=== PATIENT | male | born 1965 | race Caucasian/White ===

== ENCOUNTER 2017-08-03 11:53 | Inpatient (IN) | payer OTHER ==
[2017-08-03 12:39] LABS: Urine Drugs of Abuse Note Disclamer
[2017-08-03 12:55] LABS: Bacteria,Urine 1+ /HPF (Negative); Bilirubin,Urine SM (Negative); Blood,Urine LG (Negative); Ketones,Urine TR mg/dL (Negative); Leukocyte Esterase,Urine NEG (Negative); Mucus,Urine 3+ /HPF; Nitrite,Urine NEG (Negative)
[2017-08-03 12:56] LABS: RBC,Urine > 182.0 /HPF (0.0-6.0)
[2017-08-03] MEDS ORDERED: ATIVAN ONE (14:37)
[2017-08-03 15:09] LABS: Basophils % (Auto) 0.3 % (0.0-1.8); Eosinophils % (Auto) 0.1 % (0.0-4.3); Hematocrit 34.7 % (35.5-45.6); Hemoglobin 11.5 gm/dl (11.8-15.2); Mean Corpuscular HGB Conc 33 % (32-34); Mean Corpuscular Hemoglobin 36 pg (28-32); Mean Corpuscular Volume 108 fl (84-94)
[2017-08-03 15:18] LABS: Platelet Count 49 K/mm3 (140-440)
[2017-08-03 15:23] LABS: INR 1.03 (0.87-1.13)
[2017-08-03 15:24] LABS: Partial Thromboplastin Time 28.2 Sec. (24.2-36.6)
[2017-08-03 15:29] LABS: Anion Gap 33 mmol/L; BUN/Creatinine Ratio 12; Blood Urea Nitrogen 7 mg/dL (9-20); Calcium 7.7 mg/dL (8.4-10.2); Carbon Dioxide 16 mmol/L (22-30); Chloride 97.7 mmol/L (98-107); Glucose 122 mg/dL (75-100); Potassium 3.6 mmol/L (3.6-5.0); Sodium 143 mmol/L (137-145)
[2017-08-03 15:31] LABS: Albumin 3.2 g/dL (3.9-5); Albumin/Globulin Ratio 0.8 %; Bilirubin,Direct 1.3 mg/dL (0-0.2); Bilirubin,Indirect 1.3 mg/dL; Bilirubin,Total 2.6 mg/dL (0.1-1.2)
--- NOTE | 2017-08-03 15:33 | Cat Scan Report ---
FINAL REPORT EXAM: CT HEAD/BRAIN WO CON HISTORY: fall TECHNIQUE: CT of the Head without IV contrast. PRIORS: None currently available. FINDINGS: There is no evidence for acute ischemia. There is no hemorrhage. There is no midline shift. There is no hydrocephalus. There is no mass. Age appropriate araya-white matter attenuation is noted. There is no calvarial fracture. The temporal bones demonstrate aerated mastoid air cells. The middle ears appear unremarkable. Mild mucosal thickening in both anterior ethmoid sinuses. Globes are intact. IMPRESSION: No acute intracranial findings.
--- NOTE | 2017-08-03 15:35 | Cat Scan Report ---
FINAL REPORT EXAM: CT CERVICAL SPINE WO CON HISTORY: fall TECHNIQUE: CT of the Cervical Spine without IV contrast. Coronal and sagittal reformatted images were provided. PRIORS: None currently available. FINDINGS: There is no fracture. There is no subluxation. There is no atlantooccipital dislocation. Occipitiocervical joint is intact. C1-C2: Intact. Minimal to mild degenerative discs at C3-C7. No significant canal narrowing. Some neural foraminal narrowing. Prevertebral soft tissue structures are unremarkable. IMPRESSION: No acute fracture.
--- NOTE | 2017-08-03 16:32 | Emergency Department Report ---
HPI - General Chief Complaint: Alcohol Time Seen by Provider: 08/03/17 15:51 - HPI HPI: Room 8 The patient is a 52-year-old male presenting with a chief complaint of syncope. The patient states he was sitting in the laundry mat and then had a syncopal episode. The patient states he awakened at EMS around him. Patient had small bottles of alcohol found on him. The patient only complains of head pain. Patient denies any other complaints. Patient denies nausea or vomiting Location: Head Duration: [See above] Quality: Pain Severity: Moderate Modifying factors: [see above] Context: [see above] Mode of transportation: [not driving] ED Past Medical Hx - Past Medical History Previous Medical History?: No - Surgical History Past Surgical History?: No - Family History Family history: no significant - Social History Smoking Status: Never Smoker Substance Use Type: Alcohol ED Review of Systems ROS: Stated complaint: ETOH, ALTERED Other details as noted in HPI Eyes: denies: eye pain ENT: denies: ear pain Respiratory: denies: shortness of breath Cardiovascular: denies: chest pain Gastrointestinal: denies: nausea, vomiting Genitourinary: denies: dysuria Musculoskeletal: denies: back pain Neurological: headache Physical Exam - Physical Exam Vital Signs: Vital Signs 08/03/17 08/03/17 15:05 15:27 Temperature 100.2 F H Pulse Rate 108 H 94 H Respiratory 22 Rate Blood Pressure 140/79 140/79 [Right] O2 Sat by Pulse 94 Oximetry Physical Exam: GENERAL: The patient is well-developed well-nourished male lying on stretcher not appearing to be in acute distress. [] HEENT: Normocephalic. Atraumatic. Extraocular motions are intact. Patient has moist mucous membranes. NECK: Supple. No meningitic signs are noted. Trachea midline CHEST/LUNGS: Clear to auscultation. There is no respiratory distress noted. HEART/CARDIOVASCULAR: Regular. There is no tachycardia. There is no gallop rub or murmur. ABDOMEN: Abdomen is soft, nontender. Patient has normal bowel sounds. There is no abdominal distention. SKIN: There is no rash. There is no edema. There is no diaphoresis. NEURO: The patient is awake, alert, and oriented. The patient is cooperative. The patient has no focal neurologic deficits. The patient has normal speech. Cranial nerves II through XII grossly intact, no drift MUSCULOSKELETAL: There is no evidence of acute injury. ED Course Vital Signs 08/03/17 08/03/17 15:05 15:27 Temperature 100.2 F H Pulse Rate 108 H 94 H Respiratory 22 Rate Blood Pressure 140/79 140/79 [Right] O2 Sat by Pulse 94 Oximetry ED Medical Decision Making - Lab Data Result diagrams: 08/03/17 14:57 08/03/17 14:57 Laboratory Tests 08/03/17 08/03/17 08/03/17 12:28 12:28 14:57 WBC RBC Hgb Hct MCV MCH MCHC RDW Plt Count Lymph % (Auto) [place] % (Auto) Eos % (Auto) Baso % (Auto) Lymph # Parker # Eos # Baso # Seg Neutrophils % Seg Neutrophils # PT INR APTT Sodium 143 Potassium 3.6 Chloride 97.7 L Carbon Dioxide 16 L Anion Gap 33 BUN 7 L Creatinine 0.6 L Estimated GFR > 60 BUN/Creatinine Ratio 12 Glucose 122 H Calcium 7.7 L Total Bilirubin Direct Bilirubin Indirect Bilirubin AST ALT Alkaline Phosphatase Total Creatine Kinase Total Protein Albumin Albumin/Globulin Ratio Urine Color Ellyn Urine Turbidity Clear Urine pH 5.0 Ur Specific [place] 1.034 H Urine Protein 100 mg/dl Urine Glucose (UA) 50 Urine Ketones Tr Urine Blood Lg Urine Nitrite Neg Urine Bilirubin Sm Urine Ictotest Positive Urine Urobilinogen 4.0 Ur Leukocyte Esterase Neg Urine WBC (Auto) 19.0 H Urine RBC (Auto) > 182.0 U Epithel Cells (Auto) < 1.0 Urine Bacteria (Auto) 1+ Urine Mucus 3+ Urine Opiates Screen Presumptive negative Urine Methadone Screen Presumptive negative Ur Barbiturates Screen Presumptive negative Ur Phencyclidine Scrn Presumptive negative Ur Amphetamines Screen Presumptive negative U Benzodiazepines Scrn Presumptive negative Urine Cocaine Screen Presumptive negative U Marijuana (THC) Screen Presumptive negative Drugs of Abuse Note Disclamer Plasma/Serum Alcohol 08/03/17 08/03/17 08/03/17 14:57 14:57 14:57 WBC 7.0 RBC 3.20 L Hgb 11.5 L Hct 34.7 L MCV 108 H MCH 36 H MCHC 33 RDW 14.0 Plt Count 49 L Lymph % (Auto) 10.3 L Parker % (Auto) 8.0 H Eos % (Auto) 0.1 Baso % (Auto) 0.3 Lymph # 0.7 L Parker # 0.6 Eos # 0.0 Baso # 0.0 Seg Neutrophils % 81.3 H Seg Neutrophils # 5.7 PT INR APTT Sodium Potassium Chloride Carbon Dioxide Anion Gap BUN Creatinine Estimated GFR BUN/Creatinine Ratio Glucose Calcium Total Bilirubin 2.60 H Direct Bilirubin 1.3 H Indirect Bilirubin 1.3 AST 181 H ALT 63 H Alkaline Phosphatase 200 H Total Creatine Kinase Total Protein 7.0 Albumin 3.2 L Albumin/Globulin Ratio 0.8 Urine Color Urine Turbidity Urine pH Ur Specific [place] Urine Protein Urine Glucose (UA) Urine Ketones Urine Blood Urine Nitrite Urine Bilirubin Urine Ictotest Urine Urobilinogen Ur Leukocyte Esterase Urine WBC (Auto) Urine RBC (Auto) U Epithel Cells (Auto) Urine Bacteria (Auto) Urine Mucus Urine Opiates Screen Urine Methadone Screen Ur Barbiturates Screen Ur Phencyclidine Scrn Ur Amphetamines Screen U Benzodiazepines Scrn Urine Cocaine Screen U Marijuana (THC) Screen Drugs of Abuse Note Plasma/Serum Alcohol 0.09 H 08/03/17 08/03/17 14:57 16:30 WBC RBC Hgb Hct MCV MCH MCHC RDW Plt Count Lymph % (Auto) [place] % (Auto) Eos % (Auto) Baso % (Auto) Lymph # Parker # Eos # Baso # Seg Neutrophils % Seg Neutrophils # PT 14.0 INR 1.03 APTT 28.2 Sodium Potassium Chloride Carbon Dioxide Anion Gap BUN Creatinine Estimated GFR BUN/Creatinine Ratio Glucose Calcium Total Bilirubin Direct Bilirubin Indirect Bilirubin AST ALT Alkaline Phosphatase Total Creatine Kinase 460 H Total Protein Albumin Albumin/Globulin Ratio Urine Color Urine Turbidity Urine pH Ur Specific [place] Urine Protein Urine Glucose (UA) Urine Ketones Urine Blood Urine Nitrite Urine Bilirubin Urine Ictotest Urine Urobilinogen Ur Leukocyte Esterase Urine WBC (Auto) Urine RBC (Auto) U Epithel Cells (Auto) Urine Bacteria (Auto) Urine Mucus Urine Opiates Screen Urine Methadone Screen Ur Barbiturates Screen Ur Phencyclidine Scrn Ur Amphetamines Screen U Benzodiazepines Scrn Urine Cocaine Screen U Marijuana (THC) Screen Drugs of Abuse Note Plasma/Serum Alcohol - EKG Data -: EKG Interpreted by [place] EKG shows normal: sinus rhythm Rate: normal - EKG Data When compared to previous EKG there are: previous EKG unavailable Interpretation: other (no ischemic changes seen) - Radiology Data Radiology results: report reviewed (CT head, CT cervical spine), image reviewed (CT head CT cervical spine) FINAL REPORT EXAM: CT HEAD/BRAIN WO CON HISTORY: fall TECHNIQUE: CT of the Head without IV contrast. PRIORS: None currently available. FINDINGS: There is no evidence for acute ischemia. There is no hemorrhage. There is no midline shift. There is no hydrocephalus. There is no mass. Age appropriate araya-white matter attenuation is noted. There is no calvarial fracture. The temporal bones demonstrate aerated mastoid air cells. The middle ears appear unremarkable. Mild mucosal thickening in both anterior ethmoid sinuses. Globes are intact. IMPRESSION: No acute intracranial findings. Transcribed By: TYM Dictated By: NEGRO OLIVO MD Electronically Authenticated By: NEGRO OLIVO MD Signed Date/Time: 08/03/171129 DD/ 29 TD/TT: 08/03/171129 FINAL REPORT EXAM: CT CERVICAL SPINE WO CON HISTORY: fall TECHNIQUE: CT of the Cervical Spine without IV contrast. Coronal and sagittal reformatted images were provided. PRIORS: None currently available. FINDINGS: There is no fracture. There is no subluxation. There is no atlantooccipital dislocation. Occipitiocervical joint is intact. C1-C2: Intact. Minimal to mild degenerative discs at C3-C7. No significant canal narrowing. Some neural foraminal narrowing. Prevertebral soft tissue structures are unremarkable. IMPRESSION: No acute fracture. Transcribed By: TYM Dictated By: NEGRO OLIVO MD Electronically Authenticated By: NEGRO OLIVO MD Signed Date/Time: 08/03/171131 DD/ 31 TD/TT: 08/03/171131 - Differential Diagnosis syncope, dysrhythmia, alcoholism, Critical care attestation.: If time is entered above; I have spent that time in minutes in the direct care of this critically ill patient, excluding procedure time. ED Disposition Clinical Impression: Closed head injury, Syncope, Elevated LFTs, Alcohol abuse Disposition: OP ADMIT IP TO THIS HOSP Is pt being admited?: Yes Does the pt Need Aspirin: Yes Condition: Fair Instructions: Syncope (ED) Referrals: PRIMARY CARE, [Primary Care Provider] - 3-5 Days Time of Disposition: 18:01 (hospitalist paged (Dr King))
[2017-08-03] MEDS ORDERED: VITAMIN B-1 100 MG, FOLVITE 1 MG, INFUVITE 10 ML, MAGNESIUM SULFATE 2 GM in NACL 0.9% 1... IV ONE (17:00)
[2017-08-03] MEDS ORDERED: ASPIRIN PO ONE (18:02)
[2017-08-03] MEDS ORDERED: ULTRAM PO ONE (18:02)
--- NOTE | 2017-08-03 20:41 | History and Physical Report ---
History of Present Illness Date of examination: 08/03/17 Date of admission: 08/03/17 Chief complaint: CC:Passed out at [facility] couple of hrs ago. 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 No Chest painPalpitations or diaphoresis. No N/V No recent travel Past History Past Medical History: No medical history Past Surgical History: No surgical history Social history: lives with family, alcohol abuse (Drinks 1 bottle of Vodka 750 mlor Tequila), full code Family history: no significant family history Medications and Allergies Allergies Allergy/AdvReac Type Severity Reaction Status Date / Time No Known Allergies Allergy Unverified 08/03/17 12:16 Active Meds: Active Medications Thiamine HCl 100 mg/ Folic Acid 1 mg/ Multivitamins/Minerals 10 ml/ Magnesium Sulfate 2 gm/ Sodium Chloride 1,015.2 mls @ 250 mls/hr IV ONCE.ED ONE Stop: 08/03/17 21:03 Last Admin: 08/03/17 17:14 Dose: 250 mls/hr Review of Systems All systems: negative Constitutional: no weight loss, no weight gain, no fever, no chills Ears, nose, mouth and throat: no dysphagia, no hoarseness, no sore throat, no swelling in mouth Respiratory: no cough, no cough with sputum, no excessive sputum, no hemoptysis , no shortness of breath, no dyspnea on exertion Gastrointestinal: no abdominal pain, no nausea, no vomiting, no diarrhea, no constipation, no change in bowel habits, no hematemesis, no coffee ground emesis Genitourinary Male: no dysuria, no hematuria, no flank pain, no discharge, no urinary frequency, no urinary hesitancy Rectal: no pain Musculoskeletal: no neck stiffness, no neck pain, no shooting arm pain, no arm numbness/tingling Integumentary: no rash, no pruritis, no redness, no sores Neurological: syncope, no head injury, no transient paralysis, no paralysis, no seizures Psychiatric: no anxiety, no memory loss, no change in sleep habits, no sleep disturbances, no insomnia, no change in appetite, no change in libido Endocrine: no cold intolerance, no heat intolerance, no polyphagia, no excessive thirst, no polydipsia Hematologic/Lymphatic: no easy bruising, no easy bleeding Allergic/Immunologic: no urticaria, no allergic rhinitis, no wheezing Exam - Constitutional Vitals: Temp Pulse Resp BP Pulse Ox 97.8 F 91 H 19 135/80 98 08/03/17 20:00 08/03/17 20:00 08/03/17 20:00 08/03/17 20:00 08/03/17 20:00 General appearance: Present: no acute distress, well-nourished - EENT Eyes: Present: PERRL ENT: hearing intact, clear oral mucosa - Neck Neck: Present: supple, normal ROM - Respiratory Respiratory effort: normal Respiratory: bilateral: CTA - Cardiovascular Heart rate: 70 Rhythm: regular Heart Sounds: Present: S1 & S2. Absent: rub, click - Extremities Extremities: no ischemia, pulses intact, pulses symmetrical, No edema Peripheral Pulses: within normal limits - Abdominal General gastrointestinal: Present: soft, non-tender, non-distended, normal bowel sounds Male genitourinary: Present: normal - Rectal Rectal Exam: deferred - Integumentary Integumentary: Present: clear, warm, dry - Musculoskeletal Musculoskeletal: gait normal, strength equal bilaterally - Psychiatric Psychiatric: appropriate mood/affect, intact judgment & insight - Neurologic Neurologic: CNII-XII intact, moves all extremities - Allied Health Allied health notes reviewed: nursing, case management Results - Labs CBC & Chem 7: 08/03/17 14:57 08/03/17 14:57 Labs: Laboratory Last Values WBC 7.0 K/mm3 (4.5-11.0) 08/03/17 14:57 RBC 3.20 M/mm3 (3.65-5.03) L 08/03/17 14:57 Hgb 11.5 gm/dl (11.8-15.2) L 08/03/17 14:57 Hct 34.7 % (35.5-45.6) L 08/03/17 14:57 MCV 108 fl (84-94) H 08/03/17 14:57 MCH 36 pg (28-32) H 08/03/17 14:57 MCHC 33 % (32-34) 08/03/17 14:57 RDW 14.0 % (13.2-15.2) 08/03/17 14:57 Plt Count 49 K/mm3 (140-440) L 08/03/17 14:57 Lymph % (Auto) 10.3 % (13.4-35.0) L 08/03/17 14:57 [place] % (Auto) 8.0 % (0.0-7.3) H 08/03/17 14:57 Eos % (Auto) 0.1 % (0.0-4.3) 08/03/17 14:57 Baso % (Auto) 0.3 % (0.0-1.8) 08/03/17 14:57 Lymph # 0.7 K/mm3 (1.2-5.4) L 08/03/17 14:57 [place] # 0.6 K/mm3 (0.0-0.8) 08/03/17 14:57 Eos # 0.0 K/mm3 (0.0-0.4) 08/03/17 14:57 Baso # 0.0 K/mm3 (0.0-0.1) 08/03/17 14:57 Seg Neutrophils % 81.3 % (40.0-70.0) H 08/03/17 14:57 Seg Neutrophils # 5.7 K/mm3 (1.8-7.7) 08/03/17 14:57 PT 14.0 Sec. (12.2-14.9) 08/03/17 14:57 INR 1.03 (0.87-1.13) 08/03/17 14:57 APTT 28.2 Sec. (24.2-36.6) 08/03/17 14:57 Sodium 143 mmol/L (137-145) 08/03/17 14:57 Potassium 3.6 mmol/L (3.6-5.0) 08/03/17 14:57 Chloride 97.7 mmol/L (98-107) L 08/03/17 14:57 Carbon Dioxide 16 mmol/L (22-30) L 08/03/17 14:57 Anion Gap 33 mmol/L 08/03/17 14:57 BUN 7 mg/dL (9-20) L 08/03/17 14:57 Creatinine 0.6 mg/dL (0.8-1.5) L 08/03/17 14:57 Estimated GFR > 60 ml/min 08/03/17 14:57 BUN/Creatinine Ratio 12 % 08/03/17 14:57 Glucose 122 mg/dL (75-100) H 08/03/17 14:57 Calcium 7.7 mg/dL (8.4-10.2) L 08/03/17 14:57 Total Bilirubin 2.60 mg/dL (0.1-1.2) H 08/03/17 14:57 Direct Bilirubin 1.3 mg/dL (0-0.2) H 08/03/17 14:57 Indirect Bilirubin 1.3 mg/dL 08/03/17 14:57 AST 181 units/L (5-40) H 08/03/17 14:57 ALT 63 units/L (7-56) H 08/03/17 14:57 Alkaline Phosphatase 200 units/L (35-129) H 08/03/17 14:57 Total Creatine Kinase 460 units/L (55-170) H 08/03/17 16:30 Total Protein 7.0 g/dL (6.3-8.2) 08/03/17 14:57 Albumin 3.2 g/dL (3.9-5) L 08/03/17 14:57 Albumin/Globulin Ratio 0.8 % 08/03/17 14:57 Urine Color Ellyn (Yellow) 08/03/17 12:28 Urine Turbidity Clear (Clear) 08/03/17 12:28 Urine pH 5.0 (5.0-7.0) 08/03/17 12:28 Ur Specific [place] 1.034 (1.003-1.030) H 08/03/17 12:28 Urine Protein 100 mg/dl mg/dL (Negative) 08/03/17 12:28 Urine Glucose (UA) 50 mg/dL (Negative) 08/03/17 12:28 Urine Ketones Tr mg/dL (Negative) 08/03/17 12:28 Urine Blood Lg (Negative) 08/03/17 12:28 Urine Nitrite Neg (Negative) 08/03/17 12:28 Urine Bilirubin Sm (Negative) 08/03/17 12:28 Urine Ictotest Positive (Negative) 08/03/17 12:28 Urine Urobilinogen 4.0 mg/dL (<2.0) 08/03/17 12:28 Ur Leukocyte Esterase Neg (Negative) 08/03/17 12:28 Urine WBC (Auto) 19.0 /HPF (0.0-6.0) H 08/03/17 12:28 Urine RBC (Auto) > 182.0 /HPF (0.0-6.0) 08/03/17 12:28 U Epithel Cells (Auto) < 1.0 /HPF (0-13.0) 08/03/17 12:28 Urine Bacteria (Auto) 1+ /HPF (Negative) 08/03/17 12:28 Urine Mucus 3+ /HPF 08/03/17 12:28 Urine Opiates Screen Presumptive negative 08/03/17 12:28 Urine Methadone Screen Presumptive negative 08/03/17 12:28 Ur Barbiturates Screen Presumptive negative 08/03/17 12:28 Ur Phencyclidine Scrn Presumptive negative 08/03/17 12:28 Ur Amphetamines Screen Presumptive negative 08/03/17 12:28 U Benzodiazepines Scrn Presumptive negative 08/03/17 12:28 Urine Cocaine Screen Presumptive negative 08/03/17 12:28 U Marijuana (THC) Screen Presumptive negative 08/03/17 12:28 Drugs of Abuse Note Disclamer 08/03/17 12:28 Plasma/Serum Alcohol 0.09 gm% (0-0.07) H 08/03/17 14:57 - Imaging and Cardiology EKG: report reviewed (Sinus Tach [id number]/min) CT Scan - head: report reviewed (NAF) Assessment and Plan Advance Directives: Yes (Full code) VTE prophylaxis?: Chemical Plan of care discussed with patient/family: Yes - Patient Problems (1) Syncope Current Visit: Yes Status: Acute Qualifiers: Syncope type: unspecified Qualified Code(s): R55 - Syncope and collapse Plan to address problem: Syncope w/u CDS and Lexiscan Cardiac enzumes ETOH induced. (2) Transaminitis Current Visit: Yes Status: Acute Plan to address problem: Sec to ETOH Check Hepatitis profile (3) Alcohol abuse Current Visit: Yes Status: Chronic Plan to address problem: Needs Detox and willing to get help [place] protocol initiated to prevent DT's (4) Closed head injury Current Visit: Yes Status: Acute Qualifiers: Encounter type: initial encounter Qualified Code(s): S09.90XA - Unspecified injury of head, initial encounter Plan to address problem: Small Lac to Lip.Head CT normal (5) DVT prophylaxis Current Visit: Yes Status: Acute Plan to address problem: on lovenox
[2017-08-03] MEDS ORDERED: TYLENOL PO PRN (20:50)
[2017-08-03] MEDS ORDERED: AMBIEN PO PRN (20:50)
[2017-08-03] MEDS ORDERED: MILK OF MAGNESIA PO PRN (20:50)
[2017-08-03] MEDS ORDERED: DULCOLAX PR PRN (20:50)
[2017-08-03] MEDS ORDERED: ATIVAN IV PRN (21:01)
[2017-08-03] MEDS ORDERED: HALDOL IV PRN (21:01)
[2017-08-03] MEDS: ATIVAN IV PRN ×2 (21:42→23:00)
[2017-08-03 22:04] LABS: Albumin 3.3 g/dL (3.9-5); Albumin/Globulin Ratio 0.8 %; Bilirubin,Direct 1.7 mg/dL (0-0.2); Bilirubin,Indirect 1.6 mg/dL; Bilirubin,Total 3.3 mg/dL (0.1-1.2); Magnesium 1.9 mg/dL (1.7-2.3); Total Protein 7.4 g/dL (6.3-8.2)
[2017-08-03] MEDS: PEPCID IV SCH (22:10)
[2017-08-03] MEDS: ZOFRAN IV PRN (22:15)
[2017-08-03] MEDS: D5NS 1,000 ML IV SCH (22:19)
[2017-08-04] MEDS: ATIVAN IV PRN ×4 (01:28→11:44)
[2017-08-04] MEDS: HALDOL IV PRN ×3 (03:30→20:56)
[2017-08-04 06:44] LABS: Alanine Aminotransferase 50 units/L (7-56); Albumin 2.9 g/dL (3.9-5); Albumin/Globulin Ratio 0.8 %; Alkaline Phosphatase 158 units/L (35-129); BUN/Creatinine Ratio 18; Blood Urea Nitrogen 7 mg/dL (9-20); Calcium 7.2 mg/dL (8.4-10.2); Carbon Dioxide 24 mmol/L (22-30); Chloride 102.7 mmol/L (98-107); Glucose 91 mg/dL (75-100); Potassium 3.3 mmol/L (3.6-5.0); Sodium 141 mmol/L (137-145); Total Protein 6.6 g/dL (6.3-8.2)
[2017-08-04 06:46] LABS: Anion Gap 18 mmol/L
[2017-08-04 07:09] LABS: Basophils % (Auto) 0.5 % (0.0-1.8); Eosinophils % (Auto) 1.1 % (0.0-4.3); Hemoglobin 10.5 gm/dl (11.8-15.2); Mean Corpuscular HGB Conc 34 % (32-34); Mean Corpuscular Hemoglobin 37 pg (28-32); Mean Corpuscular Volume 108 fl (84-94); Red Blood Count 2.88 M/mm3 (3.65-5.03); Red Cell Distribution Width 13.3 % (13.2-15.2); White Blood Count 5.1 K/mm3 (4.5-11.0)
[2017-08-04 07:10] LABS: Platelet Count 34 K/mm3 (140-440)
[2017-08-04 07:35] LABS: Creatine Kinase MB 3.5 ng/mL (0.0-4.0)
[2017-08-04 07:36] LABS: Creatine Kinase 471 units/L (55-170)
[2017-08-04] MEDS: ZOFRAN IV PRN (08:26)
[2017-08-04] MEDS: LIBRIUM PO PRN ×3 (08:26→18:53)
[2017-08-04] MEDS: MORPHINE IV PRN (08:27)
[2017-08-04] MEDS ORDERED: ROCEPHIN/NS 2 GM/100 ML 2 GM/100 ML BAG IV SCH (10:00)
[2017-08-04] MEDS ORDERED: NACL 0.9% 500 ML IR ONE (10:05)
[2017-08-04] MEDS ORDERED: XYLOCAINE 1% 20 mL ONE (10:20)
[2017-08-04] MEDS: cefTRIAXone 2 GM in NACL 0.9% 20 ML IV SCH (11:43)
[2017-08-04] MEDS: PEPCID IV SCH ×2 (11:51→21:04)
--- NOTE | 2017-08-04 12:28 | Cat Scan Report ---
CT HEAD WITHOUT CONTRAST: HISTORY: Injury, pain. TECHNIQUE: Sequential 2.5mm CT images. COMPARISON: none. FINDINGS: Cerebral Parenchyma: Within normal limits. Cerebellum: Within normal limits. Brainstem: Within normal limits. Ventricles: Normal. Sella: Normal. Extra-axial spaces: Normal. Basal Cisterns: Normal. Intracranial Hemorrhage: None. Midline Shift: None. Calvarium: Normal. Sinuses: Normal. Mastoid Air Cells: Normal. Visualized Orbits: Normal. IMPRESSION: Cranial CT scan within normal limits.
--- NOTE | 2017-08-04 12:33 | Cat Scan Report ---
CT SCAN OF THE CERVICAL SPINE: HISTORY: Injury, neck pain. TECHNIQUE: Contiguous 1.25 mm axial images of the cervical spine were obtained. Sagittal and coronal reformatted images. FINDINGS: There is normal alignment of the cervical spine. The body, pedicles and posterior ligaments appear normal. No evidence of fracture or subluxation is seen. Mild degenerative disc disease is noted at C6-7. The spinal canal appears normal. The prevertebral soft tissues appear normal. IMPRESSION: Mild cervical spondylosis. No acute process is noted.
--- NOTE | 2017-08-04 12:34 | Cat Scan Report ---
CT FACIAL BONES WITHOUT CONTRAST: HISTORY: Pain, injury, swelling. TECHNIQUE: Helical CT images with sagittal and coronal CT reformations. FINDINGS: There is moderate left periorbital soft tissue swelling. All paranasal sinuses are clear. No sinus wall fracture, fluid level or opacification. The orbital cavities are symmetric and intact. The mandible is intact. The skull base and upper cervical spine demonstrate no evidence for acute injury. IMPRESSION: Left periorbital soft tissue swelling. No acute facial fracture is detected.
[2017-08-04] MEDS: LOVENOX SUB-Q SCH (12:56)
[2017-08-04 14:41] LABS: Creatine Kinase MB 2.8 ng/mL (0.0-4.0)
[2017-08-04 14:42] LABS: Creatine Kinase 447 units/L (55-170)
--- NOTE | 2017-08-04 16:15 | Consultation ---
History of Present Illness - Reason for Consult Consult date: 08/04/17 Reason for consult: psychiatric evaluation - Chief Complaint Chief complaint: Syncope - History of Present Psychiatric Illness Attempt to interview the patient with interpretation by his nurse. The patient is a 52-year-old male presenting with a chief complaint of syncope. His language is Yi.The record indicates he was sitting in the laundry mat and then had a syncopal episode. The patient stated he awakened at EMS around him. Patient had small bottles of alcohol found on him. He told the nurse he drinks 750mL of tequila daily. He has to be redirected often and is being closely monitored on a stretcher in the ngo by the nurse. He urinated in the floor and required assistance in getting clean. Additional information is not available. He is drowsy and confused. He was unable to engage in interview. Medications and Allergies Allergies Allergy/AdvReac Type Severity Reaction Status Date / Time No Known Allergies Allergy Unverified 08/03/17 12:16 Active Meds: Active Medications Acetaminophen (Tylenol) 650 mg PO Q4H PRN PRN Reason: Pain MILD(1-3)/Fever >100.5/THOMPSON Bisacodyl (Dulcolax) 10 mg RI QDAY PRN PRN Reason: Constipation unrelieved by MOM Chlordiazepoxide HCl (Librium) 50 mg PO Q1H PRN PRN Reason: CIWA-Ar 8-15 Last Admin: 08/04/17 08:26 Dose: 50 mg Chlordiazepoxide HCl (Librium) 100 mg PO Q1H PRN PRN Reason: CIWA-Ar 16-25 Enoxaparin Sodium (Lovenox) 40 mg SUB-Q QDAY [facility] Last Admin: 08/04/17 12:56 Dose: 40 mg Famotidine (Pepcid) 20 mg IV BID [facility] Last Admin: 08/04/17 11:51 Dose: 20 mg Haloperidol Lactate (Haldol) 5 mg IV Q1H PRN PRN Reason: Unrespon. to mult. doses BZD's Last Admin: 08/04/17 06:00 Dose: 5 mg Haloperidol Lactate (Haldol) 10 mg IV Q1H PRN PRN Reason: CIWA-Ar >15 and unrespon BZD's Dextrose/Sodium Chloride (D5ns) 1,000 mls @ 125 mls/hr IV DIRECT [facility] Last Admin: 08/03/17 22:19 Dose: 125 mls/hr Ceftriaxone Sodium 2 gm/ (Sodium Chloride) 20 mls @ 20 mls/10 min IV Q24HR [facility] Last Admin: 08/04/17 11:43 Dose: 20 mls/10 min Lorazepam (Ativan) 2 mg IV Q1H PRN PRN Reason: CIWA-Ar 8-15 Last Admin: 08/04/17 11:44 Dose: 2 mg Lorazepam (Ativan) 4 mg IV Q1H PRN PRN Reason: CIWA-Ar 16-25 Last Admin: 08/04/17 01:28 Dose: 4 mg Lorazepam (Ativan) 4 mg IV Q15MIN PRN PRN Reason: CIWA-Ar >25 Last Admin: 08/04/17 13:51 Dose: 4 mg Magnesium Hydroxide (Milk Of Magnesia) 30 ml PO Q4H PRN PRN Reason: Constipation Morphine Sulfate (Morphine) 2 mg IV Q4H PRN PRN Reason: Pain, Moderate (4-6) Last Admin: 08/04/17 08:27 Dose: 2 mg Ondansetron HCl (Zofran) 4 mg IV Q8H PRN PRN Reason: N/V unrelieved by Reglan Last Admin: 08/04/17 08:26 Dose: 4 mg Phenobarbital (Phenobarbital) 130 mg IV Q15M PRN PRN Reason: DT's refractory to BZD's Zolpidem Tartrate (Ambien) 5 mg PO QHS PRN PRN Reason: Insomnia Past psychiatric history - Past Medical History Past Medical History: other (none known) - past Psychiatric treatment and history psychiatric treatment history: 750ml of tequila daily x years No additional information available. - Social History Social history: lives with family, alcohol abuse Mental Status Exam - Vital signs Last Vital Signs Temp 97.9 F 08/04/17 07:10 Pulse 101 H 08/04/17 13:55 Resp 19 08/04/17 13:55 BP 118/78 08/04/17 13:55 Pulse Ox 97 08/04/17 13:55 - Exam Orientation: person Thought content: other (unable to obtain) Thought Process: Disoriented Perceptions: other (unable to obtain) Speech: incoherent Concentration: unable to pay attention Motor activity: restless Level of consciousness: confused Sleep Symptoms: Restless Interaction: uncooperative Results Result Diagrams: 08/04/17 06:01 08/04/17 06:01 Abnormal lab results 08/03/17 08/03/17 08/03/17 Range/Units 16:30 21:31 21:31 RBC (3.65-5.03) M/mm3 Hgb (11.8-15.2) gm/dl Hct (35.5-45.6) % MCV (84-94) fl MCH (28-32) pg Plt Count (140-440) K/mm3 [place] % (Auto) (0.0-7.3) % Lymph # (1.2-5.4) K/mm3 Potassium (3.6-5.0) mmol/L BUN (9-20) mg/dL Creatinine (0.8-1.5) mg/dL Calcium (8.4-10.2) mg/dL Total Bilirubin 3.30 H (0.1-1.2) mg/dL Direct Bilirubin 1.7 H (0-0.2) mg/dL AST 167 H (5-40) units/L ALT 61 H (7-56) units/L Alkaline Phosphatase 197 H (35-129) units/L Ammonia 156.0 H (25-60) umol/L Total Creatine Kinase 460 H (55-170) units/L Albumin 3.3 L (3.9-5) g/dL 08/04/17 08/04/17 08/04/17 Range/Units 06:01 06:01 06:58 RBC 2.88 L (3.65-5.03) M/mm3 Hgb 10.5 L (11.8-15.2) gm/dl Hct 31.0 L (35.5-45.6) % MCV 108 H (84-94) fl MCH 37 H (28-32) pg Plt Count 34 L (140-440) K/mm3 [place] % (Auto) 11.6 H (0.0-7.3) % Lymph # 1.1 L (1.2-5.4) K/mm3 Potassium 3.3 L (3.6-5.0) mmol/L BUN 7 L (9-20) mg/dL Creatinine 0.4 L (0.8-1.5) mg/dL Calcium 7.2 L (8.4-10.2) mg/dL Total Bilirubin 3.40 H (0.1-1.2) mg/dL Direct Bilirubin (0-0.2) mg/dL AST 128 H (5-40) units/L ALT (7-56) units/L Alkaline Phosphatase 158 H (35-129) units/L Ammonia (25-60) umol/L Total Creatine Kinase 471 H (55-170) units/L Albumin 2.9 L (3.9-5) g/dL 08/04/17 Range/Units 13:45 RBC (3.65-5.03) M/mm3 Hgb (11.8-15.2) gm/dl Hct (35.5-45.6) % MCV (84-94) fl MCH (28-32) pg Plt Count (140-440) K/mm3 [place] % (Auto) (0.0-7.3) % Lymph # (1.2-5.4) K/mm3 Potassium (3.6-5.0) mmol/L BUN (9-20) mg/dL Creatinine (0.8-1.5) mg/dL Calcium (8.4-10.2) mg/dL Total Bilirubin (0.1-1.2) mg/dL Direct Bilirubin (0-0.2) mg/dL AST (5-40) units/L ALT (7-56) units/L Alkaline Phosphatase (35-129) units/L Ammonia (25-60) umol/L Total Creatine Kinase 447 H (55-170) units/L Albumin (3.9-5) g/dL All other labs normal. Assessment and Plan Assessment and plan: Impression: Alcohol use disorder, severe. underlying psychiatric disorder is unknown Medical: Syncope elevated liver enzymes platelets 34 Closed head injury Recommendation: Detox per the medical team. Psychiatry will follow up when the patient is coherent and assess for underlying psychiatric conditions and determine need for aftercare.
[2017-08-04] MEDS ORDERED: XYLOCAINE 1% 20 mL INFILTRATI NR (16:30)
--- NOTE | 2017-08-04 17:14 | Procedure Note ---
Date of procedure: 08/04/17 (lac repair l upper lip) Pre-op diagnosis: lac approx 4 cm crossing v boarder of l upper lip sp fall Post-op diagnosis: same Procedure: lac repair per Dr Hamilton's request anesth w 1% lido wo epi approx 3 ml area cleaned verm border approx w 6.0 6 additional suture, running, cont to repair wound which ran toward nares tolerated procedure well dressing applied pt oral care given pt cleaned p procedure given blood soiled linen removed pt moved back to ngo bed and rn aware and at bedside when BUSINESS DIVISION CHAIR left the area. RN asked to place ice on lip and to monitor patient so that he does not disturb the suture line. Dr Hamilton given report on wound closure and he stated he will address antibiotics Estimated blood loss: minimal Pathology: none Condition: stable Disposition: other (er)
--- NOTE | 2017-08-04 18:59 | Progress Note ---
Assessment and Plan - Patient Problems (1) Syncope Current Visit: Yes Status: Acute Qualifiers: Syncope type: unspecified Qualified Code(s): R55 - Syncope and collapse Plan to address problem: Syncope w/u CDS and Lexiscan pending Cardiac enzymes ETOH induced syncope. (2) Transaminitis Current Visit: Yes Status: Acute Plan to address problem: Sec to ETOH Hepatitis profile negative (3) Alcohol abuse Current Visit: Yes Status: Chronic Plan to address problem: Needs Detox and willing to get help Ciwa protocol initiated to prevent DT's (4) Closed head injury Current Visit: Yes Status: Acute Qualifiers: Encounter type: initial encounter Qualified Code(s): S09.90XA - Unspecified injury of head, initial encounter Plan to address problem: Small Lac to Lip.Head CT normal (5) DVT prophylaxis Current Visit: Yes Status: Acute Plan to address problem: on lovenox Subjective Date of service: 08/04/17 Principal diagnosis: Syncope Etoh dependence Interval history: Sx Better Objective - Constitutional Vitals: Vital Signs - 12hr 08/04/17 08/04/17 08/04/17 07:10 08:27 11:02 Temperature 97.9 F Pulse Rate 106 H 86 Respiratory 20 20 18 Rate Blood Pressure 128/76 123/76 [Right] O2 Sat by Pulse 97 96 Oximetry 08/04/17 08/04/17 13:55 16:38 Temperature 97.7 F Pulse Rate 101 H 107 H Respiratory 19 20 Rate Blood Pressure 118/78 117/71 [Right] O2 Sat by Pulse 97 98 Oximetry General appearance: Present: no acute distress, well-nourished - EENT Eyes: PERRL, EOM intact ENT: hearing intact, clear oral mucosa Ears: bilateral: normal - Neck Neck: supple, normal ROM - Respiratory Respiratory effort: normal Respiratory: bilateral: CTA - Breasts Breasts: normal - Cardiovascular Rhythm: regular Heart Sounds: Present: S1 & S2. Absent: gallop, rub Extremities: pulses intact, No edema, normal color, Full ROM - Gastrointestinal General gastrointestinal: Present: soft, non-tender, non-distended, normal bowel sounds - Genitourinary Male genitourinary: normal - Integumentary Integumentary: clear, warm, dry - Musculoskeletal Musculoskeletal: 1, strength equal bilaterally - Neurologic Neurologic: moves all extremities - Psychiatric Psychiatric: memory intact, appropriate mood/affect, intact judgment & insight - Labs CBC & Chem 7: 08/04/17 06:01 08/04/17 06:01 Labs: Abnormal lab results 08/03/17 08/03/17 08/04/17 Range/Units 21:31 21:31 06:01 RBC 2.88 L (3.65-5.03) M/mm3 Hgb 10.5 L (11.8-15.2) gm/dl Hct 31.0 L (35.5-45.6) % MCV 108 H (84-94) fl MCH 37 H (28-32) pg Plt Count 34 L (140-440) K/mm3 [place] % (Auto) 11.6 H (0.0-7.3) % Lymph # 1.1 L (1.2-5.4) K/mm3 Potassium (3.6-5.0) mmol/L BUN (9-20) mg/dL Creatinine (0.8-1.5) mg/dL Calcium (8.4-10.2) mg/dL Total Bilirubin 3.30 H (0.1-1.2) mg/dL Direct Bilirubin 1.7 H (0-0.2) mg/dL AST 167 H (5-40) units/L ALT 61 H (7-56) units/L Alkaline Phosphatase 197 H (35-129) units/L Ammonia 156.0 H (25-60) umol/L Total Creatine Kinase (55-170) units/L Albumin 3.3 L (3.9-5) g/dL 08/04/17 08/04/17 08/04/17 Range/Units 06:01 06:58 13:45 RBC (3.65-5.03) M/mm3 Hgb (11.8-15.2) gm/dl Hct (35.5-45.6) % MCV (84-94) fl MCH (28-32) pg Plt Count (140-440) K/mm3 [place] % (Auto) (0.0-7.3) % Lymph # (1.2-5.4) K/mm3 Potassium 3.3 L (3.6-5.0) mmol/L BUN 7 L (9-20) mg/dL Creatinine 0.4 L (0.8-1.5) mg/dL Calcium 7.2 L (8.4-10.2) mg/dL Total Bilirubin 3.40 H (0.1-1.2) mg/dL Direct Bilirubin (0-0.2) mg/dL AST 128 H (5-40) units/L ALT (7-56) units/L Alkaline Phosphatase 158 H (35-129) units/L Ammonia (25-60) umol/L Total Creatine Kinase 471 H 447 H (55-170) units/L Albumin 2.9 L (3.9-5) g/dL
[2017-08-04] MEDS: D5NS 1,000 ML IV SCH (20:57)
[2017-08-04 21:21] LABS: Creatine Kinase 425 units/L (55-170); Creatine Kinase MB 2.2 ng/mL (0.0-4.0)
[2017-08-04] MEDS ORDERED: HALDOL IM PRN ×2 (22:00)
[2017-08-05] MEDS: ATIVAN IV PRN ×4 (03:10→23:05)
[2017-08-05] MEDS: LIBRIUM PO PRN ×4 (06:17→22:58)
[2017-08-05] MEDS: PEPCID IV SCH ×2 (15:04→21:49)
[2017-08-05] MEDS: cefTRIAXone 2 GM in NACL 0.9% 20 ML IV SCH (15:04)
[2017-08-05] MEDS: LOVENOX SUB-Q SCH (15:05)
[2017-08-05] MEDS: CEPHULAC PO SCH ×2 (18:01→23:05)
[2017-08-05] MEDS: KCL 10MEQ/100ML 10 MEQ/100 ML BAG IV SCH ×2 (18:01→20:11)
[2017-08-05] MEDS: D5NS 1,000 ML IV SCH (18:01)
--- NOTE | 2017-08-05 19:47 | Progress Note ---
Assessment and Plan Assessment and plan: 51 years old his panic male with heavy alcohol abuse brought to the hospital after a syncopal episode Syncope Negative workup, related with alcohol abuse Alcohol withdrawal syndrome Status post banana bag On CIWA protocol Supportive care, psychiatry following Alcoholic hepatitis AST>ALT Hepatitis profile negative Monitor Hepatic encephalopathy Start lactulose Monitor ammonia level Thrombocytopenia Due to alcohol abuse Hypokalemia Replete and recheck Check magnesium level Rhabdomyolysis Give IV fluids, monitor CPK Closed head injury CT head with no acute abnormality Small laceration Malrnutrition Started feeding when able to take by mouth DVT prophylaxis History Interval history: confused, agitated at times Hospitalist Physical - Constitutional Vitals: Temp Pulse Resp BP Pulse Ox 98.6 F 95 H 18 108/71 92 08/05/17 17:02 08/05/17 17:02 08/05/17 17:02 08/05/17 17:02 08/05/17 17:02 General appearance: Present: mild distress, well-nourished - EENT Eyes: Present: PERRL, EOM intact - Neck Neck: Present: supple, normal ROM. Absent: masses or JVD - Respiratory Respiratory effort: normal Respiratory: bilateral: CTA, negative: rhonchi, wheezing - Cardiovascular Rhythm: other (tachycardic) Heart Sounds: Present: S1 & S2. Absent: systolic murmur - Extremities Extremities: no ischemia - Abdominal General gastrointestinal: soft, non-tender, non-distended, normal bowel sounds - Psychiatric Psychiatric: no appropriate mood/affect, no intact judgment & insight, agitated , other (confused) - Neurologic Neurologic: moves all extremities Results - Labs CBC & Chem 7: 08/08/17 05:15 08/08/17 05:15 Labs: Laboratory Last Values WBC 5.1 K/mm3 (4.5-11.0) 08/04/17 06:01 RBC 2.88 M/mm3 (3.65-5.03) L 08/04/17 06:01 Hgb 10.5 gm/dl (11.8-15.2) L 08/04/17 06:01 Hct 31.0 % (35.5-45.6) L 08/04/17 06:01 MCV 108 fl (84-94) H 08/04/17 06:01 MCH 37 pg (28-32) H 08/04/17 06:01 MCHC 34 % (32-34) 08/04/17 06:01 RDW 13.3 % (13.2-15.2) 08/04/17 06:01 Plt Count 34 K/mm3 (140-440) L 08/04/17 06:01 Lymph % (Auto) 21.7 % (13.4-35.0) 08/04/17 06:01 [place] % (Auto) 11.6 % (0.0-7.3) H 08/04/17 06:01 Eos % (Auto) 1.1 % (0.0-4.3) 08/04/17 06:01 Baso % (Auto) 0.5 % (0.0-1.8) 08/04/17 06:01 Lymph # 1.1 K/mm3 (1.2-5.4) L 08/04/17 06:01 [place] # 0.6 K/mm3 (0.0-0.8) 08/04/17 06:01 Eos # 0.1 K/mm3 (0.0-0.4) 08/04/17 06:01 Baso # 0.0 K/mm3 (0.0-0.1) 08/04/17 06:01 Seg Neutrophils % 65.1 % (40.0-70.0) 08/04/17 06:01 Seg Neutrophils # 3.3 K/mm3 (1.8-7.7) 08/04/17 06:01 PT 14.0 Sec. (12.2-14.9) 08/03/17 14:57 INR 1.03 (0.87-1.13) 08/03/17 14:57 APTT 28.2 Sec. (24.2-36.6) 08/03/17 14:57 Sodium 141 mmol/L (137-145) 08/04/17 06:01 Potassium 3.3 mmol/L (3.6-5.0) L 08/04/17 06:01 Chloride 102.7 mmol/L (98-107) 08/04/17 06:01 Carbon Dioxide 24 mmol/L (22-30) D 08/04/17 06:01 Anion Gap 18 mmol/L 08/04/17 06:01 BUN 7 mg/dL (9-20) L 08/04/17 06:01 Creatinine 0.4 mg/dL (0.8-1.5) L 08/04/17 06:01 Estimated GFR > 60 ml/min 08/04/17 06:01 BUN/Creatinine Ratio 18 % 08/04/17 06:01 Glucose 91 mg/dL (75-100) 08/04/17 06:01 Hemoglobin A1c 4.3 % (4-6) 08/03/17 21:31 Calcium 7.2 mg/dL (8.4-10.2) L 08/04/17 06:01 Magnesium 1.90 mg/dL (1.7-2.3) 08/03/17 21:31 Total Bilirubin 3.40 mg/dL (0.1-1.2) H 08/04/17 06:01 Direct Bilirubin 1.7 mg/dL (0-0.2) H 08/03/17 21:31 Indirect Bilirubin 1.6 mg/dL 08/03/17 21:31 AST 128 units/L (5-40) H 08/04/17 06:01 ALT 50 units/L (7-56) 08/04/17 06:01 Alkaline Phosphatase 158 units/L (35-129) H 08/04/17 06:01 Ammonia 156.0 umol/L (25-60) H 08/03/17 21:31 Total Creatine Kinase 425 units/L (55-170) H 08/04/17 20:30 CK-MB (CK-2) 2.2 ng/mL (0.0-4.0) 08/04/17 20:30 CK-MB (CK-2) Rel Index 0.5 (0-4) 08/04/17 20:30 Troponin T < 0.010 ng/mL (0.00-0.029) 08/04/17 20:30 Total Protein 6.6 g/dL (6.3-8.2) 08/04/17 06:01 Albumin 2.9 g/dL (3.9-5) L 08/04/17 06:01 Albumin/Globulin Ratio 0.8 % 08/04/17 06:01 Urine Color [place] (Yellow) 08/03/17 12:28 Urine Turbidity Clear (Clear) 08/03/17 12:28 Urine pH 5.0 (5.0-7.0) 08/03/17 12:28 Ur Specific [place] 1.034 (1.003-1.030) H 08/03/17 12:28 Urine Protein 100 mg/dl mg/dL (Negative) 08/03/17 12:28 Urine Glucose (UA) 50 mg/dL (Negative) 08/03/17 12:28 Urine Ketones Tr mg/dL (Negative) 08/03/17 12:28 Urine Blood Lg (Negative) 08/03/17 12:28 Urine Nitrite Neg (Negative) 08/03/17 12:28 Urine Bilirubin Sm (Negative) 08/03/17 12:28 Urine Ictotest Positive (Negative) 08/03/17 12:28 Urine Urobilinogen 4.0 mg/dL (<2.0) 08/03/17 12:28 Ur Leukocyte Esterase Neg (Negative) 08/03/17 12:28 Urine WBC (Auto) 19.0 /HPF (0.0-6.0) H 08/03/17 12:28 Urine RBC (Auto) > 182.0 /HPF (0.0-6.0) 08/03/17 12:28 U Epithel Cells (Auto) < 1.0 /HPF (0-13.0) 08/03/17 12:28 Urine Bacteria (Auto) 1+ /HPF (Negative) 08/03/17 12:28 Urine Mucus 3+ /HPF 08/03/17 12:28 Urine Opiates Screen Presumptive negative 08/03/17 12:28 Urine Methadone Screen Presumptive negative 08/03/17 12:28 Ur Barbiturates Screen Presumptive negative 08/03/17 12:28 Ur Phencyclidine Scrn Presumptive negative 08/03/17 12:28 Ur Amphetamines Screen Presumptive negative 08/03/17 12:28 U Benzodiazepines Scrn Presumptive negative 08/03/17 12:28 Urine Cocaine Screen Presumptive negative 08/03/17 12:28 U Marijuana (THC) Screen Presumptive negative 08/03/17 12:28 Drugs of Abuse Note Disclamer 08/03/17 12:28 Plasma/Serum Alcohol 0.09 gm% (0-0.07) H 08/03/17 14:57 Hepatitis A IgM Ab Non-reactive (NonReactive) 08/04/17 06:58 Hep Bs Antigen Non-reactive (Negative) 08/04/17 06:58 Hep B Core IgM Ab Non-reactive (NonReactive) 08/04/17 06:58 Hepatitis C Antibody Non-reactive (NonReactive) 08/04/17 06:58
[2017-08-06] MEDS: LIBRIUM PO PRN ×2 (01:37→06:21)
[2017-08-06] MEDS: D5NS 1,000 ML IV SCH ×2 (04:29→11:56)
[2017-08-06 05:57] LABS: Hematocrit 30.7 % (35.5-45.6); Hemoglobin 10.6 gm/dl (11.8-15.2); Mean Corpuscular HGB Conc 35 % (32-34); Mean Corpuscular Hemoglobin 38 pg (28-32); Mean Corpuscular Volume 108 fl (84-94); Red Blood Count 2.83 M/mm3 (3.65-5.03); Red Cell Distribution Width 13.3 % (13.2-15.2); White Blood Count 5.2 K/mm3 (4.5-11.0)
[2017-08-06 06:03] LABS: Platelet Count 49 K/mm3 (140-440)
[2017-08-06 06:08] LABS: Alanine Aminotransferase 48 units/L (7-56); Albumin 2.9 g/dL (3.9-5); Albumin/Globulin Ratio 0.9 %; Alkaline Phosphatase 154 units/L (35-129); Anion Gap 18 mmol/L; BUN/Creatinine Ratio 12; Blood Urea Nitrogen 6 mg/dL (9-20); Calcium 7.6 mg/dL (8.4-10.2); Carbon Dioxide 20 mmol/L (22-30); Chloride 108.3 mmol/L (98-107); Creatine Kinase 1308 units/L (55-170); Glucose 105 mg/dL (75-100); Sodium 143 mmol/L (137-145); Total Protein 6.3 g/dL (6.3-8.2)
[2017-08-06] MEDS: CEPHULAC PO SCH ×3 (06:17→17:04)
[2017-08-06 06:47] LABS: Basophils % (Manual) 0 % (0.0-1.8); Blastocytes % (Manual) 0 %
[2017-08-06 06:48] LABS: Diff Status Complete; Macrocytosis Few; Platelet Estimate Appears Decreased
[2017-08-06] MEDS: ATIVAN IV PRN ×4 (08:44→17:04)
[2017-08-06] MEDS: cefTRIAXone 2 GM in NACL 0.9% 20 ML IV SCH (09:51)
[2017-08-06] MEDS: LOVENOX SUB-Q SCH (09:52)
[2017-08-06] MEDS: PEPCID IV SCH ×2 (09:52→22:39)
[2017-08-06] MEDS ORDERED: MAGNESIUM SULFATE 2GM/50ML 2 GM/50 ML BAG IV ONE (10:30)
[2017-08-06] MEDS ORDERED: VITAMIN B-1 100 MG, FOLVITE 1 MG, INFUVITE 10 ML in NACL 0.9% 1000 ML 1,000 ML IV ONE (12:00)
[2017-08-06] MEDS: KCL 10MEQ/100ML 10 MEQ/100 ML BAG IV SCH ×4 (13:33→18:02)
--- NOTE | 2017-08-06 14:38 | Consultation ---
History of Present Illness - Reason for Consult Consult date: 08/06/17 Reason for consult: Mental Health Evaluation - Chief Complaint Chief complaint: Syncope Medications and Allergies Allergies Allergy/AdvReac Type Severity Reaction Status Date / Time No Known Allergies Allergy Unverified 08/03/17 12:16 Home Medications Medication Instructions Recorded Confirmed Last Taken Type No Known Home Medications [No 08/05/17 08/05/17 Unknown History Reported Home Medications] Active Meds: Active Medications Acetaminophen (Tylenol) 650 mg PO Q4H PRN PRN Reason: Pain MILD(1-3)/Fever >100.5/THOMPSON Last Admin: 08/04/17 20:56 Dose: 650 mg Bisacodyl (Dulcolax) 10 mg IN QDAY PRN PRN Reason: Constipation unrelieved by MOM Enoxaparin Sodium (Lovenox) 40 mg SUB-Q QDAY [facility] Last Admin: 08/06/17 09:52 Dose: 40 mg Famotidine (Pepcid) 20 mg IV BID [facility] Last Admin: 08/06/17 09:52 Dose: 20 mg Dextrose/Sodium Chloride (D5ns) 1,000 mls @ 125 mls/hr IV DIRECT [facility] Last Admin: 08/06/17 11:56 Dose: 125 mls/hr Ceftriaxone Sodium 2 gm/ (Sodium Chloride) 20 mls @ 20 mls/10 min IV Q24HR [facility] Last Admin: 08/06/17 09:51 Dose: 20 mls/10 min Thiamine HCl 100 mg/ Folic Acid 1 mg/ Multivitamins/Minerals 10 ml/ Sodium Chloride 1,011.2 mls @ 150 mls/hr IV ONCE ONE Stop: 08/06/17 18:44 Potassium Chloride (Kcl 10meq/100ml) 10 meq in 100 mls @ 100 mls/hr IV Q1H [facility] Stop: 08/06/17 14:59 Last Admin: 08/06/17 14:23 Dose: 100 mls/hr Lactulose (Cephulac) 20 gm PO Q6HR [facility] Last Admin: 08/06/17 11:57 Dose: 20 gm Lorazepam (Ativan) 2 mg IV Q1H PRN PRN Reason: CIWA-Ar 8-15 Last Admin: 08/06/17 14:35 Dose: 2 mg Lorazepam (Ativan) 4 mg IV Q1H PRN PRN Reason: CIWA-Ar 16-25 Last Admin: 08/05/17 23:05 Dose: 4 mg Lorazepam (Ativan) 4 mg IV Q15MIN PRN PRN Reason: CIWA-Ar >25 Last Admin: 08/04/17 13:51 Dose: 4 mg Magnesium Hydroxide (Milk Of Magnesia) 30 ml PO Q4H PRN PRN Reason: Constipation Morphine Sulfate (Morphine) 2 mg IV Q4H PRN PRN Reason: Pain, Moderate (4-6) Last Admin: 08/04/17 08:27 Dose: 2 mg Ondansetron HCl (Zofran) 4 mg IV Q8H PRN PRN Reason: N/V unrelieved by Reglan Last Admin: 08/04/17 08:26 Dose: 4 mg Phenobarbital (Phenobarbital) 130 mg IV Q15M PRN PRN Reason: DT's refractory to BZD's Mental Status Exam - Vital signs Last Vital Signs Temp 97.7 F 08/06/17 07:44 Pulse 104 H 08/06/17 07:44 Resp 18 08/06/17 07:44 BP 128/77 08/06/17 07:44 Pulse Ox 100 08/06/17 07:44 Results Result Diagrams: 08/06/17 05:29 08/06/17 05:29 Abnormal lab results 08/06/17 08/06/17 08/06/17 Range/Units 05:29 05:29 09:13 RBC 2.83 L (3.65-5.03) M/mm3 Hgb 10.6 L (11.8-15.2) gm/dl Hct 30.7 L (35.5-45.6) % MCV 108 H (84-94) fl MCH 38 H (28-32) pg MCHC 35 H (32-34) % Plt Count 49 L (140-440) K/mm3 Seg Neuts % (Manual) 72.0 H (40.0-70.0) % Eosinophils % (Manual) 6.0 H (0.0-4.3) % Lymphocytes # (Manual) 0.8 L (1.2-5.4) K/mm3 Potassium 3.0 L (3.6-5.0) mmol/L Chloride 108.3 H (98-107) mmol/L Carbon Dioxide 20 L (22-30) mmol/L BUN 6 L (9-20) mg/dL Creatinine 0.5 L (0.8-1.5) mg/dL Glucose 105 H (75-100) mg/dL Calcium 7.6 L (8.4-10.2) mg/dL Magnesium 1.50 L (1.7-2.3) mg/dL Total Bilirubin 2.80 H (0.1-1.2) mg/dL AST 130 H (5-40) units/L Alkaline Phosphatase 154 H (35-129) units/L Total Creatine Kinase 1308 H (55-170) units/L Albumin 2.9 L (3.9-5) g/dL Vitamin B12 1117 H (211-911) pg/mL All other labs normal.
--- NOTE | 2017-08-06 14:40 | Progress Note ---
Subjective - Reason for Consult Consult date: 08/06/17 Reason for consult: Psychiatry Follow-up - Chief Complaint Chief complaint: "Patient confused" The patient is a 52-year-old male presenting with a chief complaint of syncope. An attempt was made to communicate with patient, but unsuccessful. Patient is confused. No gestures of SI/HI's. Mental Status Exam - Vital signs Last Vital Signs Temp 97.7 F 08/06/17 07:44 Pulse 104 H 08/06/17 07:44 Resp 18 08/06/17 07:44 BP 128/77 08/06/17 07:44 Pulse Ox 100 08/06/17 07:44 - Exam Narrative exam: MSE cannot be completed at this time due to patient's condition. Assessment and Plan Impression: Alcohol Use DO. Delirium. Patient is confused and in restraints. Underlying psychiatric disorder is unknown. Medical: Syncope, elevated liver enzymes, platelets 49 trending up, CK 1308 Recommendation: Continue CIWA. Will assess patient daily. Continue Recommend delirium precaution below: 1. Frequently reorient patient and involve him/her in their care (simple explanations of procedures, tests, medications). 2. Lights on and shades open during daytime hours. 3. Try to avoid unnecessary interruptions to sleep during nighttime hours. 4. Obtain glasses, hearing aids from home if patient uses these at baseline. 5. Avoid medications that may exacerbate delirium (especially narcotics, benzodiazepines, barbiturates, ambien, lunesta, and medications with excessive anticholinergic properties). If possible, use alternative pain medication for patient. 6. Recommend Haldol 2 mg IM Q6hrs PRN for acute agitation. 7. Recommend 1:1 sitter for safety.
[2017-08-06] MEDS: MORPHINE IV PRN (19:58)
--- NOTE | 2017-08-06 22:27 | Progress Note ---
Assessment and Plan Assessment and plan: 52 years old his panic male with heavy alcohol abuse brought to the hospital after a syncopal episode Syncope Negative workup, related with alcohol abuse Alcohol withdrawal syndrome Status post banana bag On CIWA protocol Supportive care, psychiatry following Alcoholic hepatitis AST>ALT Hepatitis profile negative Monitor Hepatic encephalopathy Started on lactulose Ammonia level trending down Thrombocytopenia Due to alcohol abuse Monitor Anemia Macrocytic, likely due to alcohol abuse also Check B12 and folate Hypokalemia Potassium still low despite replacement; continue IV K Also repleting magnesium Recheck in a.m. Rhabdomyolysis CPK trending up Continue IV fluids Closed head injury CT head with no acute abnormality Small laceration Malnutrition Start feeding when able to take by mouth DVT prophylaxis History Interval history: confused, agitated, on restraints no family available Hospitalist Physical - Constitutional Vitals: Temp Pulse Resp BP Pulse Ox 98.1 F 122 H 22 136/86 92 08/06/17 17:03 08/06/17 17:03 08/06/17 19:58 08/06/17 17:03 08/06/17 17:03 General appearance: Present: mild distress, well-nourished - EENT Eyes: Present: PERRL, EOM intact, scleral icterus. Absent: conjunctival injection - Neck Neck: Present: supple, normal ROM. Absent: masses or JVD - Respiratory Respiratory effort: normal Respiratory: bilateral: CTA, negative: rhonchi, wheezing - Cardiovascular Rhythm: other (tachycardic) Heart Sounds: Present: S1 & S2. Absent: systolic murmur - Extremities Extremities: no ischemia - Abdominal General gastrointestinal: soft, non-tender, non-distended, normal bowel sounds - Psychiatric Psychiatric: no appropriate mood/affect, no intact judgment & insight, no memory intact, agitated, other (confused) - Neurologic Neurologic: CNII-XII intact, no focal deficits Results - Labs CBC & Chem 7: 08/08/17 05:15 08/08/17 05:15 Labs: Laboratory Last Values WBC 5.2 K/mm3 (4.5-11.0) 08/06/17 05:29 RBC 2.83 M/mm3 (3.65-5.03) L 08/06/17 05:29 Hgb 10.6 gm/dl (11.8-15.2) L 08/06/17 05:29 Hct 30.7 % (35.5-45.6) L 08/06/17 05:29 MCV 108 fl (84-94) H 08/06/17 05:29 MCH 38 pg (28-32) H 08/06/17 05:29 MCHC 35 % (32-34) H 08/06/17 05:29 RDW 13.3 % (13.2-15.2) 08/06/17 05:29 Plt Count 49 K/mm3 (140-440) L 08/06/17 05:29 Lymph % (Auto) 21.7 % (13.4-35.0) 08/04/17 06:01 G[place] % (Auto) 11.6 % (0.0-7.3) H 08/04/17 06:01 Eos % (Auto) 1.1 % (0.0-4.3) 08/04/17 06:01 Baso % (Auto) Chart Clerk 08/06/17 05:29 Lymph # 1.1 K/mm3 (1.2-5.4) L 08/04/17 06:01 Gove # 0.6 K/mm3 (0.0-0.8) 08/04/17 06:01 Eos # 0.1 K/mm3 (0.0-0.4) 08/04/17 06:01 Baso # 0.0 K/mm3 (0.0-0.1) 08/04/17 06:01 Add Manual Diff Complete 08/06/17 05:29 Total Counted 100 08/06/17 05:29 Seg Neutrophils % 65.1 % (40.0-70.0) 08/04/17 06:01 Seg Neuts % (Manual) 72.0 % (40.0-70.0) H 08/06/17 05:29 Band Neutrophils % 2.0 % 08/06/17 05:29 Lymphocytes % (Manual) 15.0 % (13.4-35.0) 08/06/17 05:29 Reactive Lymphs % (Man) 0 % 08/06/17 05:29 Monocytes % (Manual) 5.0 % (0.0-7.3) 08/06/17 05:29 Eosinophils % (Manual) 6.0 % (0.0-4.3) H 08/06/17 05:29 Basophils % (Manual) 0 % (0.0-1.8) 08/06/17 05:29 Metamyelocytes % 0 % 08/06/17 05:29 Myelocytes % 0 % 08/06/17 05:29 Promyelocytes % 0 % 08/06/17 05:29 Blast Cells % 0 % 08/06/17 05:29 Nucleated RBC % Not Reportable 08/06/17 05:29 Seg Neutrophils # 3.3 K/mm3 (1.8-7.7) 08/04/17 06:01 Seg Neutrophils # Man 3.7 K/mm3 (1.8-7.7) 08/06/17 05:29 Band Neutrophils # 0.1 K/mm3 08/06/17 05:29 Lymphocytes # (Manual) 0.8 K/mm3 (1.2-5.4) L 08/06/17 05:29 Abs React Lymphs (Man) 0.0 K/mm3 08/06/17 05:29 Monocytes # (Manual) 0.3 K/mm3 (0.0-0.8) 08/06/17 05:29 Eosinophils # (Manual) 0.3 K/mm3 (0.0-0.4) 08/06/17 05:29 Basophils # (Manual) 0.0 K/mm3 (0.0-0.1) 08/06/17 05:29 Metamyelocytes # 0.0 K/mm3 08/06/17 05:29 Myelocytes # 0.0 K/mm3 08/06/17 05:29 Promyelocytes # 0.0 K/mm3 08/06/17 05:29 Blast Cells # 0.0 K/mm3 08/06/17 05:29 WBC Morphology Not Reportable 08/06/17 05:29 Hypersegmented Neuts Not Reportable 08/06/17 05:29 Hyposegmented Neuts Not Reportable 08/06/17 05:29 Hypogranular Neuts Not Reportable 08/06/17 05:29 Smudge Cells Not Reportable 08/06/17 05:29 Toxic Granulation Not Reportable 08/06/17 05:29 Toxic Vacuolation Not Reportable 08/06/17 05:29 Dohle Bodies Not Reportable 08/06/17 05:29 Pelger-Huet Anomaly Not Reportable 08/06/17 05:29 Kalpana Rods Not Reportable 08/06/17 05:29 Platelet Estimate Appears decreased 08/06/17 05:29 Clumped Platelets Not Reportable 08/06/17 05:29 Plt Clumps, EDTA Not Reportable 08/06/17 05:29 Large Platelets Not Reportable 08/06/17 05:29 Giant Platelets Not Reportable 08/06/17 05:29 Platelet Satelliting Not Reportable 08/06/17 05:29 Plt Morphology Comment Not Reportable 08/06/17 05:29 RBC Morphology Not Reportable 08/06/17 05:29 Dimorphic RBCs Not Reportable 08/06/17 05:29 Polychromasia Not Reportable 08/06/17 05:29 Hypochromasia Not Reportable 08/06/17 05:29 Poikilocytosis Not Reportable 08/06/17 05:29 Anisocytosis Not Reportable 08/06/17 05:29 Microcytosis Not Reportable 08/06/17 05:29 Macrocytosis Few 08/06/17 05:29 Spherocytes Not Reportable 08/06/17 05:29 Pappenheimer Bodies Not Reportable 08/06/17 05:29 Sickle Cells Not Reportable 08/06/17 05:29 Target Cells Not Reportable 08/06/17 05:29 Tear Drop Cells Not Reportable 08/06/17 05:29 Ovalocytes Not Reportable 08/06/17 05:29 Helmet Cells Not Reportable 08/06/17 05:29 Guerrier-[place] Bodies Not Reportable 08/06/17 05:29 [place]dy Rings Not Reportable 08/06/17 05:29 Lacey Cells Not Reportable 08/06/17 05:29 Bite Cells Not Reportable 08/06/17 05:29 Crenated Cell Not Reportable 08/06/17 05:29 Elliptocytes Not Reportable 08/06/17 05:29 Acanthocytes (Spur) Not Reportable 08/06/17 05:29 Rouleaux Not Reportable 08/06/17 05:29 Hemoglobin C Crystals Not Reportable 08/06/17 05:29 Schistocytes Not Reportable 08/06/17 05:29 Malaria parasites Not Reportable 08/06/17 05:29 Zhou Bodies Not Reportable 08/06/17 05:29 Hem Pathologist Commnt No 08/06/17 05:29 PT 14.0 Sec. (12.2-14.9) 08/03/17 14:57 INR 1.03 (0.87-1.13) 08/03/17 14:57 APTT 28.2 Sec. (24.2-36.6) 08/03/17 14:57 Sodium 143 mmol/L (137-145) 08/06/17 05:29 Potassium 3.0 mmol/L (3.6-5.0) L 08/06/17 05:29 Chloride 108.3 mmol/L (98-107) H 08/06/17 05:29 Carbon Dioxide 20 mmol/L (22-30) L 08/06/17 05:29 Anion Gap 18 mmol/L 08/06/17 05:29 BUN 6 mg/dL (9-20) L 08/06/17 05:29 Creatinine 0.5 mg/dL (0.8-1.5) L 08/06/17 05:29 Estimated GFR > 60 ml/min 08/06/17 05:29 BUN/Creatinine Ratio 12 % 08/06/17 05:29 Glucose 105 mg/dL (75-100) H 08/06/17 05:29 Hemoglobin A1c 4.3 % (4-6) 08/03/17 21:31 Calcium 7.6 mg/dL (8.4-10.2) L 08/06/17 05:29 Magnesium 1.50 mg/dL (1.7-2.3) L 08/06/17 05:29 Total Bilirubin 2.80 mg/dL (0.1-1.2) H 08/06/17 05:29 Direct Bilirubin 1.7 mg/dL (0-0.2) H 08/03/17 21:31 Indirect Bilirubin 1.6 mg/dL 08/03/17 21:31 AST 130 units/L (5-40) H 08/06/17 05:29 ALT 48 units/L (7-56) 08/06/17 05:29 Alkaline Phosphatase 154 units/L (35-129) H 08/06/17 05:29 Ammonia 52.0 umol/L (25-60) 08/06/17 05:29 Total Creatine Kinase 1308 units/L (55-170) H 08/06/17 05:29 CK-MB (CK-2) 2.2 ng/mL (0.0-4.0) 08/04/17 20:30 CK-MB (CK-2) Rel Index 0.5 (0-4) 08/04/17 20:30 Troponin T < 0.010 ng/mL (0.00-0.029) 08/04/17 20:30 Total Protein 6.3 g/dL (6.3-8.2) 08/06/17 05:29 Albumin 2.9 g/dL (3.9-5) L 08/06/17 05:29 Albumin/Globulin Ratio 0.9 % 08/06/17 05:29 Vitamin B12 1117 pg/mL (211-911) H 08/06/17 09:13 Folate 13.19 ng/mL (7.3-26.0) 08/06/17 09:13 Urine Color [place] (Yellow) 08/03/17 12:28 Urine Turbidity Clear (Clear) 08/03/17 12:28 Urine pH 5.0 (5.0-7.0) 08/03/17 12:28 Ur Specific [place] 1.034 (1.003-1.030) H 08/03/17 12:28 Urine Protein 100 mg/dl mg/dL (Negative) 08/03/17 12:28 Urine Glucose (UA) 50 mg/dL (Negative) 08/03/17 12:28 Urine Ketones Tr mg/dL (Negative) 08/03/17 12:28 Urine Blood Lg (Negative) 08/03/17 12:28 Urine Nitrite Neg (Negative) 08/03/17 12:28 Urine Bilirubin Sm (Negative) 08/03/17 12:28 Urine Ictotest Positive (Negative) 08/03/17 12:28 Urine Urobilinogen 4.0 mg/dL (<2.0) 08/03/17 12:28 Ur Leukocyte Esterase Neg (Negative) 08/03/17 12:28 Urine WBC (Auto) 19.0 /HPF (0.0-6.0) H 08/03/17 12:28 Urine RBC (Auto) > 182.0 /HPF (0.0-6.0) 08/03/17 12:28 U Epithel Cells (Auto) < 1.0 /HPF (0-13.0) 08/03/17 12:28 Urine Bacteria (Auto) 1+ /HPF (Negative) 08/03/17 12:28 Urine Mucus 3+ /HPF 08/03/17 12:28 Urine Opiates Screen Presumptive negative 08/03/17 12:28 Urine Methadone Screen Presumptive negative 08/03/17 12:28 Ur Barbiturates Screen Presumptive negative 08/03/17 12:28 Ur Phencyclidine Scrn Presumptive negative 08/03/17 12:28 Ur Amphetamines Screen Presumptive negative 08/03/17 12:28 U Benzodiazepines Scrn Presumptive negative 08/03/17 12:28 Urine Cocaine Screen Presumptive negative 08/03/17 12:28 U Marijuana (THC) Screen Presumptive negative 08/03/17 12:28 Drugs of Abuse Note Disclamer 08/03/17 12:28 Plasma/Serum Alcohol 0.09 gm% (0-0.07) H 08/03/17 14:57 Hepatitis A IgM Ab Non-reactive (NonReactive) 08/04/17 06:58 Hep Bs Antigen Non-reactive (Negative) 08/04/17 06:58 Hep B Core IgM Ab Non-reactive (NonReactive) 08/04/17 06:58 Hepatitis C Antibody Non-reactive (NonReactive) 08/04/17 06:58
[2017-08-07] MEDS: ATIVAN IV PRN ×4 (00:09→21:12)
[2017-08-07] MEDS: D5NS 1,000 ML IV SCH ×2 (00:16→07:33)
[2017-08-07] MEDS: CEPHULAC PO SCH ×5 (00:21→23:13)
[2017-08-07 06:59] LABS: Anion Gap 16 mmol/L; BUN/Creatinine Ratio 13; Blood Urea Nitrogen 5 mg/dL (9-20); Calcium 7.6 mg/dL (8.4-10.2); Carbon Dioxide 20 mmol/L (22-30); Glucose 98 mg/dL (75-100); Potassium 3.3 mmol/L (3.6-5.0); Sodium 142 mmol/L (137-145)
[2017-08-07] MEDS: PEPCID PO SCH ×2 (09:13→09:22)
[2017-08-07] MEDS: LOVENOX SUB-Q SCH (09:13)
[2017-08-07] MEDS: cefTRIAXone 2 GM in NACL 0.9% 20 ML IV SCH (09:14)
[2017-08-07] MEDS: PEPCID IV SCH ×2 (11:02→21:12)
[2017-08-07] MEDS: KCL 10MEQ/100ML 10 MEQ/100 ML BAG IV SCH ×3 (12:20→14:31)
--- NOTE | 2017-08-07 16:56 | Progress Note ---
Subjective - Reason for Consult Reason for consult: etoh withdrawal - Chief Complaint Chief complaint: On clinical examination, patient remains sedated. Patient was in 4-point restraints and appeared to have some mild dysarthria. On review of the laboratory findings, patient remains hypokalemic with elevated liver enzymes suggestive of alcoholic hepatitis. Patient is currently being treated with lactulose some: Bassam, no ammonia level has been obtained today. I discussed the patient's presentation with the nurse, who told me patient had a recent when necessary of lorazepam early in the morning. According to her, patient had become agitated and was consequently placed in restraints. Updated mental status examination: Patient is disheveled and in hospital gown while in 4-point restraints. Patient does not aware of his surroundings and not oriented to person place and time. When speaking, patient appears somewhat dysarthric. Eye contact is variable and patient is having a difficult time relating to the interviewer. Remainder of mental status examination cannot be completed. Plan: Given the recent increase in the CK, it is likely that this is related to ongoing use of restraints. If at all possible, please reduce the use of physical restraints. Would recommend obtaining an ammonia level as the patient is currently being treated with lactulose. Further collateral information from family and friends would be helpful in determining the chronicity of his alcohol use disorder. Upon the completion of the detox protocol, please use haloperidol to manage agitation instead of lorazepam. Mental Status Exam - Vital signs Last Vital Signs Temp 97.5 F L 08/07/17 07:58 Pulse 104 H 08/07/17 07:58 Resp 18 08/07/17 07:58 BP 119/62 08/07/17 07:58 Pulse Ox 97 08/07/17 07:58
--- NOTE | 2017-08-07 19:02 | Progress Note ---
Assessment and Plan Assessment and plan: 52 years old his panic male with heavy alcohol abuse brought to the hospital after a syncopal episode Syncope Negative workup, related with alcohol abuse Alcohol withdrawal syndrome Status post banana bag On CIWA protocol Supportive care, psychiatry following Alcoholic hepatitis AST>ALT Hepatitis profile negative Monitor Hepatic encephalopathy Started on lactulose Ammonia level trending down Thrombocytopenia Due to alcohol abuse Monitor Anemia Macrocytic, likely due to alcohol abuse also B12 and folate checked and within normal limits Hypokalemia Potassium still low despite replacement; continue IV K Also repleting magnesium Rechecking Rhabdomyolysis CPK trending up Continue IV fluids Closed head injury CT head with no acute abnormality Small laceration Malnutrition Start feeding when able to take by mouth DVT prophylaxis History Interval history: remains confused, agitated, on restraints no family at bedside Hospitalist Physical - Constitutional Vitals: Temp Pulse Resp BP Pulse Ox 97.5 F L 104 H 18 119/62 97 08/07/17 07:58 08/07/17 07:58 08/07/17 07:58 08/07/17 07:58 08/07/17 07:58 General appearance: Present: mild distress, well-nourished - EENT Eyes: Present: PERRL, EOM intact, scleral icterus. Absent: conjunctival injection - Neck Neck: Present: supple, normal ROM. Absent: masses or JVD - Respiratory Respiratory effort: normal Respiratory: bilateral: CTA, negative: rhonchi, wheezing - Cardiovascular Rhythm: other (tachycardic) Heart Sounds: Present: S1 & S2. Absent: systolic murmur - Extremities Extremities: no ischemia - Abdominal General gastrointestinal: soft, non-tender, non-distended, normal bowel sounds - Psychiatric Psychiatric: agitated - Neurologic Neurologic: no focal deficits Results - Labs CBC & Chem 7: 08/08/17 05:15 08/08/17 05:15 Labs: Laboratory Last Values WBC 5.2 K/mm3 (4.5-11.0) 08/06/17 05:29 RBC 2.83 M/mm3 (3.65-5.03) L 08/06/17 05:29 Hgb 10.6 gm/dl (11.8-15.2) L 08/06/17 05:29 Hct 30.7 % (35.5-45.6) L 08/06/17 05:29 MCV 108 fl (84-94) H 08/06/17 05:29 MCH 38 pg (28-32) H 08/06/17 05:29 MCHC 35 % (32-34) H 08/06/17 05:29 RDW 13.3 % (13.2-15.2) 08/06/17 05:29 Plt Count 49 K/mm3 (140-440) L 08/06/17 05:29 Lymph % (Auto) 21.7 % (13.4-35.0) 08/04/17 06:01 [place] % (Auto) 11.6 % (0.0-7.3) H 08/04/17 06:01 Eos % (Auto) 1.1 % (0.0-4.3) 08/04/17 06:01 Baso % (Auto) Dispatcher [employer] 08/06/17 05:29 Lymph # 1.1 K/mm3 (1.2-5.4) L 08/04/17 06:01 [place] # 0.6 K/mm3 (0.0-0.8) 08/04/17 06:01 Eos # 0.1 K/mm3 (0.0-0.4) 08/04/17 06:01 Baso # 0.0 K/mm3 (0.0-0.1) 08/04/17 06:01 Add Manual Diff Complete 08/06/17 05:29 Total Counted 100 08/06/17 05:29 Seg Neutrophils % 65.1 % (40.0-70.0) 08/04/17 06:01 Seg Neuts % (Manual) 72.0 % (40.0-70.0) H 08/06/17 05:29 Band Neutrophils % 2.0 % 08/06/17 05:29 Lymphocytes % (Manual) 15.0 % (13.4-35.0) 08/06/17 05:29 Reactive Lymphs % (Man) 0 % 08/06/17 05:29 Monocytes % (Manual) 5.0 % (0.0-7.3) 08/06/17 05:29 Eosinophils % (Manual) 6.0 % (0.0-4.3) H 08/06/17 05:29 Basophils % (Manual) 0 % (0.0-1.8) 08/06/17 05:29 Metamyelocytes % 0 % 08/06/17 05:29 Myelocytes % 0 % 08/06/17 05:29 Promyelocytes % 0 % 08/06/17 05:29 Blast Cells % 0 % 08/06/17 05:29 Nucleated RBC % Not Reportable 08/06/17 05:29 Seg Neutrophils # 3.3 K/mm3 (1.8-7.7) 08/04/17 06:01 Seg Neutrophils # Man 3.7 K/mm3 (1.8-7.7) 08/06/17 05:29 Band Neutrophils # 0.1 K/mm3 08/06/17 05:29 Lymphocytes # (Manual) 0.8 K/mm3 (1.2-5.4) L 08/06/17 05:29 Abs React Lymphs (Man) 0.0 K/mm3 08/06/17 05:29 Monocytes # (Manual) 0.3 K/mm3 (0.0-0.8) 08/06/17 05:29 Eosinophils # (Manual) 0.3 K/mm3 (0.0-0.4) 08/06/17 05:29 Basophils # (Manual) 0.0 K/mm3 (0.0-0.1) 08/06/17 05:29 Metamyelocytes # 0.0 K/mm3 08/06/17 05:29 Myelocytes # 0.0 K/mm3 08/06/17 05:29 Promyelocytes # 0.0 K/mm3 08/06/17 05:29 Blast Cells # 0.0 K/mm3 08/06/17 05:29 WBC Morphology Not Reportable 08/06/17 05:29 Hypersegmented Neuts Not Reportable 08/06/17 05:29 Hyposegmented Neuts Not Reportable 08/06/17 05:29 Hypogranular Neuts Not Reportable 08/06/17 05:29 Smudge Cells Not Reportable 08/06/17 05:29 Toxic Granulation Not Reportable 08/06/17 05:29 Toxic Vacuolation Not Reportable 08/06/17 05:29 Dohle Bodies Not Reportable 08/06/17 05:29 Pelger-Huet Anomaly Not Reportable 08/06/17 05:29 Kalpana Rods Not Reportable 08/06/17 05:29 Platelet Estimate Appears decreased 08/06/17 05:29 Clumped Platelets Not Reportable 08/06/17 05:29 Plt Clumps, EDTA Not Reportable 08/06/17 05:29 Large Platelets Not Reportable 08/06/17 05:29 Giant Platelets Not Reportable 08/06/17 05:29 Platelet Satelliting Not Reportable 08/06/17 05:29 Plt Morphology Comment Not Reportable 08/06/17 05:29 RBC Morphology Not Reportable 08/06/17 05:29 Dimorphic RBCs Not Reportable 08/06/17 05:29 Polychromasia Not Reportable 08/06/17 05:29 Hypochromasia Not Reportable 08/06/17 05:29 Poikilocytosis Not Reportable 08/06/17 05:29 Anisocytosis Not Reportable 08/06/17 05:29 Microcytosis Not Reportable 08/06/17 05:29 Macrocytosis Few 08/06/17 05:29 Spherocytes Not Reportable 08/06/17 05:29 Pappenheimer Bodies Not Reportable 08/06/17 05:29 Sickle Cells Not Reportable 08/06/17 05:29 Target Cells Not Reportable 08/06/17 05:29 Tear Drop Cells Not Reportable 08/06/17 05:29 Ovalocytes Not Reportable 08/06/17 05:29 Helmet Cells Not Reportable 08/06/17 05:29 Guerrier-[place] Bodies Not Reportable 08/06/17 05:29 Ralls Rings Not Reportable 08/06/17 05:29 Cyrus Cells Not Reportable 08/06/17 05:29 Bite Cells Not Reportable 08/06/17 05:29 Crenated Cell Not Reportable 08/06/17 05:29 Elliptocytes Not Reportable 08/06/17 05:29 Acanthocytes (Spur) Not Reportable 08/06/17 05:29 Rouleaux Not Reportable 08/06/17 05:29 Hemoglobin C Crystals Not Reportable 08/06/17 05:29 Schistocytes Not Reportable 08/06/17 05:29 Malaria parasites Not Reportable 08/06/17 05:29 Zhou Bodies Not Reportable 08/06/17 05:29 Hem Pathologist Commnt No 08/06/17 05:29 PT 14.0 Sec. (12.2-14.9) 08/03/17 14:57 INR 1.03 (0.87-1.13) 08/03/17 14:57 APTT 28.2 Sec. (24.2-36.6) 08/03/17 14:57 Sodium 142 mmol/L (137-145) 08/07/17 06:07 Potassium 3.3 mmol/L (3.6-5.0) L 08/07/17 06:07 Chloride 109.0 mmol/L (98-107) H 08/07/17 06:07 Carbon Dioxide 20 mmol/L (22-30) L 08/07/17 06:07 Anion Gap 16 mmol/L 08/07/17 06:07 BUN 5 mg/dL (9-20) L 08/07/17 06:07 Creatinine 0.4 mg/dL (0.8-1.5) L 08/07/17 06:07 Estimated GFR > 60 ml/min 08/07/17 06:07 BUN/Creatinine Ratio 13 % 08/07/17 06:07 Glucose 98 mg/dL (75-100) 08/07/17 06:07 Hemoglobin A1c 4.3 % (4-6) 08/03/17 21:31 Calcium 7.6 mg/dL (8.4-10.2) L 08/07/17 06:07 Magnesium 1.70 mg/dL (1.7-2.3) 08/07/17 06:07 Total Bilirubin 2.80 mg/dL (0.1-1.2) H 08/06/17 05:29 Direct Bilirubin 1.7 mg/dL (0-0.2) H 08/03/17 21:31 Indirect Bilirubin 1.6 mg/dL 08/03/17 21:31 AST 130 units/L (5-40) H 08/06/17 05:29 ALT 48 units/L (7-56) 08/06/17 05:29 Alkaline Phosphatase 154 units/L (35-129) H 08/06/17 05:29 Ammonia 52.0 umol/L (25-60) 08/06/17 05:29 Total Creatine Kinase 1308 units/L (55-170) H 08/06/17 05:29 CK-MB (CK-2) 2.2 ng/mL (0.0-4.0) 08/04/17 20:30 CK-MB (CK-2) Rel Index 0.5 (0-4) 08/04/17 20:30 Troponin T < 0.010 ng/mL (0.00-0.029) 08/04/17 20:30 Total Protein 6.3 g/dL (6.3-8.2) 08/06/17 05:29 Albumin 2.9 g/dL (3.9-5) L 08/06/17 05:29 Albumin/Globulin Ratio 0.9 % 08/06/17 05:29 Vitamin B12 1117 pg/mL (211-911) H 08/06/17 09:13 Folate 13.19 ng/mL (7.3-26.0) 08/06/17 09:13 Urine Color [place] (Yellow) 08/03/17 12:28 Urine Turbidity Clear (Clear) 08/03/17 12:28 Urine pH 5.0 (5.0-7.0) 08/03/17 12:28 Ur Specific [place] 1.034 (1.003-1.030) H 08/03/17 12:28 Urine Protein 100 mg/dl mg/dL (Negative) 08/03/17 12:28 Urine Glucose (UA) 50 mg/dL (Negative) 08/03/17 12:28 Urine Ketones Tr mg/dL (Negative) 08/03/17 12:28 Urine Blood Lg (Negative) 08/03/17 12:28 Urine Nitrite Neg (Negative) 08/03/17 12:28 Urine Bilirubin Sm (Negative) 08/03/17 12:28 Urine Ictotest Positive (Negative) 08/03/17 12:28 Urine Urobilinogen 4.0 mg/dL (<2.0) 08/03/17 12:28 Ur Leukocyte Esterase Neg (Negative) 08/03/17 12:28 Urine WBC (Auto) 19.0 /HPF (0.0-6.0) H 08/03/17 12:28 Urine RBC (Auto) > 182.0 /HPF (0.0-6.0) 08/03/17 12:28 U Epithel Cells (Auto) < 1.0 /HPF (0-13.0) 08/03/17 12:28 Urine Bacteria (Auto) 1+ /HPF (Negative) 08/03/17 12:28 Urine Mucus 3+ /HPF 08/03/17 12:28 Urine Opiates Screen Presumptive negative 08/03/17 12:28 Urine Methadone Screen Presumptive negative 08/03/17 12:28 Ur Barbiturates Screen Presumptive negative 08/03/17 12:28 Ur Phencyclidine Scrn Presumptive negative 08/03/17 12:28 Ur Amphetamines Screen Presumptive negative 08/03/17 12:28 U Benzodiazepines Scrn Presumptive negative 08/03/17 12:28 Urine Cocaine Screen Presumptive negative 08/03/17 12:28 U Marijuana (THC) Screen Presumptive negative 08/03/17 12:28 Drugs of Abuse Note Disclamer 08/03/17 12:28 Plasma/Serum Alcohol 0.09 gm% (0-0.07) H 08/03/17 14:57 Hepatitis A IgM Ab Non-reactive (NonReactive) 08/04/17 06:58 Hep Bs Antigen Non-reactive (Negative) 08/04/17 06:58 Hep B Core IgM Ab Non-reactive (NonReactive) 08/04/17 06:58 Hepatitis C Antibody Non-reactive (NonReactive) 08/04/17 06:58
[2017-08-07] MEDS: TOBRADEX OU SCH (23:11)
[2017-08-08] MEDS: ATIVAN IV PRN ×2 (00:38→02:39)
[2017-08-08] MEDS: TOBRADEX OU SCH ×6 (02:38→21:24)
[2017-08-08] MEDS ORDERED: HALDOL IM ONE (04:40)
[2017-08-08] MEDS: CEPHULAC PO SCH ×4 (05:05→23:57)
[2017-08-08 05:56] LABS: Basophils % (Auto) 2.5 % (0.0-1.8); Eosinophils % (Auto) 3.8 % (0.0-4.3); Hematocrit 30.3 % (35.5-45.6); Hemoglobin 10.4 gm/dl (11.8-15.2); Mean Corpuscular HGB Conc 34 % (32-34); Mean Corpuscular Hemoglobin 38 pg (28-32); Mean Corpuscular Volume 110 fl (84-94); Red Blood Count 2.77 M/mm3 (3.65-5.03); Red Cell Distribution Width 13.2 % (13.2-15.2); White Blood Count 4.3 K/mm3 (4.5-11.0)
[2017-08-08 06:02] LABS: Platelet Count 69 K/mm3 (140-440)
[2017-08-08 06:17] LABS: Anion Gap 22 mmol/L; BUN/Creatinine Ratio 13; Blood Urea Nitrogen 5 mg/dL (9-20); Calcium 7.9 mg/dL (8.4-10.2); Carbon Dioxide 19 mmol/L (22-30); Chloride 101.6 mmol/L (98-107); Creatine Kinase 1348 units/L (55-170); Glucose 78 mg/dL (75-100); Potassium 3.4 mmol/L (3.6-5.0); Sodium 139 mmol/L (137-145)
--- NOTE | 2017-08-08 08:04 | Vascular Lab Report ---
CAROTID DUPLEX STUDY: RIGHT PSVEDV CCA [id number] CCA [id number] ICA PROX:7318 ICA MID:5220 ICA DIST:7125 ECA: 146 VERT: 56 15 LEFT PSVEDV CCA PROX:[id number] CCA DIST:[id number] ICA PROX:[id number] ICA MID:[id number] ICA DIST:8731 ECA: 123 VERT: 45 13 REASON FOR EXAM: Carotid artery stenosis/syncope. COMMENTS ON THE RIGHT: Doppler frequency analysis is consistent with 1 to 15 percent diameter reduction of the internal carotid artery. Minimal amount of plaque is seen. The common carotid artery is patent. The external carotid artery is patent. The vertebral artery has antegrade flow. COMMENTS ON THE LEFT: Doppler frequency analysis is consistent with 50 to 79 percent diameter reduction by velocity criteria only of the internal carotid artery. Minimal amount of plaque is seen. The common carotid artery is patent. The external carotid artery is patent. The vertebral artery has antegrade flow. IMPRESSION: 1 to 15 percent diameter reduction in the right internal carotid artery 50 to 79 percent diameter reduction by velocity criteria only without identifiable stenosis in the left internal carotid artery Clinical correlation is recommended. If warranted consider CTA or MRA.
[2017-08-08] MEDS: PEPCID IV SCH ×2 (11:38→21:24)
[2017-08-08] MEDS: LOVENOX SUB-Q SCH (11:38)
--- NOTE | 2017-08-08 12:30 | Progress Note ---
Subjective - Reason for Consult Consult date: 08/08/17 Reason for consult: Psychiatry Follow-up - Chief Complaint Chief complaint: "Patient sedated" The patient is a 52-year-old male presenting with a chief complaint of syncope. Today patient is sedated during the assessment. He opens his eyes when his name is called. An attempted to communicate with patient was unsuccessful. Per his assigned RN, the patient been in restraints since the start of his shift. Mental Status Exam - Vital signs Last Vital Signs Temp 98.8 F 08/08/17 07:46 Pulse 101 H 08/08/17 07:46 Resp 22 08/08/17 07:46 BP 127/85 08/08/17 07:46 Pulse Ox 91 08/08/17 07:46 - Exam Narrative exam: Cannot complete MSE because of patient's conditions. Assessment and Plan Impression: Alcohol Use DO. Delirium. Patient is confused and in restraints. Underlying psychiatric disorder is unknown. Medical: Syncope, elevated liver enzymes, platelets 69 trending up, CK 1348, Ammonia 138 Recommendation: Only use Ativan per CIWA. Will assess patient daily. Recommend delirium precaution below: 1. Frequently reorient patient and involve him/her in their care (simple explanations of procedures, tests, medications). 2. Lights on and shades open during daytime hours. 3. Try to avoid unnecessary interruptions to sleep during nighttime hours. 4. Obtain glasses, hearing aids from home if patient uses these at baseline. 5. Avoid medications that may exacerbate delirium (especially narcotics, benzodiazepines, barbiturates, ambien, lunesta, and medications with excessive anticholinergic properties). If possible, use alternative pain medication for patient. 6. D/C restraints when not indicated, patient's CK is trending up. 7. Recommend Haldol 2 mg IM Q6hrs PRN for acute agitation. 8. Recommend 1:1 sitter for safety.
[2017-08-08] MEDS ORDERED: CEPHULAC PR SCH (17:00)
--- NOTE | 2017-08-08 20:47 | Progress Note ---
Assessment and Plan Assessment and plan: 52 years old his panic male with heavy alcohol abuse brought to the hospital after a syncopal episode Syncope Negative workup, related with alcohol abuse Alcohol withdrawal syndrome Status post banana bag On CIWA protocol Supportive care, psychiatry following Alcoholic hepatitis AST>ALT Hepatitis profile negative Monitor Hepatic encephalopathy Started on lactulose and ammonia level normalized Now, going up again and he refused to take the lactulose Thrombocytopenia Due to alcohol abuse Slowly improving Monitor Anemia Macrocytic, likely due to alcohol abuse also B12 and folate checked and within normal limits Hypokalemia Potassium still low despite replacement; continue IV K Also repleting magnesium Rechecking Rhabdomyolysis Trending CPK Continue IV fluids Closed head injury CT head with no acute abnormality Small laceration Malnutrition Start feeding when able to take by mouth DVT prophylaxis History Interval history: Mental status starting to improve, still confused and agitated Hospitalist Physical - Constitutional Vitals: Temp Pulse Resp BP Pulse Ox 99.3 F 94 H 22 123/78 97 08/08/17 16:00 08/08/17 16:00 08/08/17 16:00 08/08/17 16:00 08/08/17 16:00 General appearance: Present: no acute distress, well-nourished - EENT Eyes: Present: PERRL, EOM intact, scleral icterus. Absent: conjunctival injection - Neck Neck: Present: supple, normal ROM. Absent: masses or JVD - Respiratory Respiratory effort: normal Respiratory: bilateral: CTA, negative: rhonchi, wheezing - Cardiovascular Rhythm: regular Heart Sounds: Present: S1 & S2. Absent: systolic murmur - Extremities Extremities: no ischemia - Abdominal General gastrointestinal: soft, non-tender, non-distended, normal bowel sounds - Psychiatric Psychiatric: other (confused) - Neurologic Neurologic: CNII-XII intact, no focal deficits Results - Labs CBC & Chem 7: 08/08/17 05:15 08/08/17 05:15 Labs: Laboratory Last Values WBC 4.3 K/mm3 (4.5-11.0) L 08/08/17 05:15 RBC 2.77 M/mm3 (3.65-5.03) L 08/08/17 05:15 Hgb 10.4 gm/dl (11.8-15.2) L 08/08/17 05:15 Hct 30.3 % (35.5-45.6) L 08/08/17 05:15 MCV 110 fl (84-94) H 08/08/17 05:15 MCH 38 pg (28-32) H 08/08/17 05:15 MCHC 34 % (32-34) 08/08/17 05:15 RDW 13.2 % (13.2-15.2) 08/08/17 05:15 Plt Count 69 K/mm3 (140-440) L 08/08/17 05:15 Lymph % (Auto) 22.0 % (13.4-35.0) 08/08/17 05:15 Lewis % (Auto) 15.3 % (0.0-7.3) H 08/08/17 05:15 Eos % (Auto) 3.8 % (0.0-4.3) 08/08/17 05:15 Baso % (Auto) 2.5 % (0.0-1.8) H 08/08/17 05:15 Lymph # 0.9 K/mm3 (1.2-5.4) L 08/08/17 05:15 Lewis # 0.6 K/mm3 (0.0-0.8) 08/08/17 05:15 Eos # 0.2 K/mm3 (0.0-0.4) 08/08/17 05:15 Baso # 0.1 K/mm3 (0.0-0.1) 08/08/17 05:15 Add Manual Diff Complete 08/06/17 05:29 Total Counted 100 08/06/17 05:29 Seg Neutrophils % 56.4 % (40.0-70.0) 08/08/17 05:15 Seg Neuts % (Manual) 72.0 % (40.0-70.0) H 08/06/17 05:29 Band Neutrophils % 2.0 % 08/06/17 05:29 Lymphocytes % (Manual) 15.0 % (13.4-35.0) 08/06/17 05:29 Reactive Lymphs % (Man) 0 % 08/06/17 05:29 Monocytes % (Manual) 5.0 % (0.0-7.3) 08/06/17 05:29 Eosinophils % (Manual) 6.0 % (0.0-4.3) H 08/06/17 05:29 Basophils % (Manual) 0 % (0.0-1.8) 08/06/17 05:29 Metamyelocytes % 0 % 08/06/17 05:29 Myelocytes % 0 % 08/06/17 05:29 Promyelocytes % 0 % 08/06/17 05:29 Blast Cells % 0 % 08/06/17 05:29 Nucleated RBC % Not Reportable 08/06/17 05:29 Seg Neutrophils # 2.4 K/mm3 (1.8-7.7) 08/08/17 05:15 Seg Neutrophils # Man 3.7 K/mm3 (1.8-7.7) 08/06/17 05:29 Band Neutrophils # 0.1 K/mm3 08/06/17 05:29 Lymphocytes # (Manual) 0.8 K/mm3 (1.2-5.4) L 08/06/17 05:29 Abs React Lymphs (Man) 0.0 K/mm3 08/06/17 05:29 Monocytes # (Manual) 0.3 K/mm3 (0.0-0.8) 08/06/17 05:29 Eosinophils # (Manual) 0.3 K/mm3 (0.0-0.4) 08/06/17 05:29 Basophils # (Manual) 0.0 K/mm3 (0.0-0.1) 08/06/17 05:29 Metamyelocytes # 0.0 K/mm3 08/06/17 05:29 Myelocytes # 0.0 K/mm3 08/06/17 05:29 Promyelocytes # 0.0 K/mm3 08/06/17 05:29 Blast Cells # 0.0 K/mm3 08/06/17 05:29 WBC Morphology Not Reportable 08/06/17 05:29 Hypersegmented Neuts Not Reportable 08/06/17 05:29 Hyposegmented Neuts Not Reportable 08/06/17 05:29 Hypogranular Neuts Not Reportable 08/06/17 05:29 Smudge Cells Not Reportable 08/06/17 05:29 Toxic Granulation Not Reportable 08/06/17 05:29 Toxic Vacuolation Not Reportable 08/06/17 05:29 Dohle Bodies Not Reportable 08/06/17 05:29 Pelger-Huet Anomaly Not Reportable 08/06/17 05:29 Kalpana Rods Not Reportable 08/06/17 05:29 Platelet Estimate Appears decreased 08/06/17 05:29 Clumped Platelets Not Reportable 08/06/17 05:29 Plt Clumps, EDTA Not Reportable 08/06/17 05:29 Large Platelets Not Reportable 08/06/17 05:29 Giant Platelets Not Reportable 08/06/17 05:29 Platelet Satelliting Not Reportable 08/06/17 05:29 Plt Morphology Comment Not Reportable 08/06/17 05:29 RBC Morphology Not Reportable 08/06/17 05:29 Dimorphic RBCs Not Reportable 08/06/17 05:29 Polychromasia Not Reportable 08/06/17 05:29 Hypochromasia Not Reportable 08/06/17 05:29 Poikilocytosis Not Reportable 08/06/17 05:29 Anisocytosis Not Reportable 08/06/17 05:29 Microcytosis Not Reportable 08/06/17 05:29 Macrocytosis Few 08/06/17 05:29 Spherocytes Not Reportable 08/06/17 05:29 Pappenheimer Bodies Not Reportable 08/06/17 05:29 Sickle Cells Not Reportable 08/06/17 05:29 Target Cells Not Reportable 08/06/17 05:29 Tear Drop Cells Not Reportable 08/06/17 05:29 Ovalocytes Not Reportable 08/06/17 05:29 Helmet Cells Not Reportable 08/06/17 05:29 Guerrier-[place] Bodies Not Reportable 08/06/17 05:29 [place] Rings Not Reportable 08/06/17 05:29 [place] Cells Not Reportable 08/06/17 05:29 Bite Cells Not Reportable 08/06/17 05:29 Crenated Cell Not Reportable 08/06/17 05:29 Elliptocytes Not Reportable 08/06/17 05:29 Acanthocytes (Spur) Not Reportable 08/06/17 05:29 Rouleaux Not Reportable 08/06/17 05:29 Hemoglobin C Crystals Not Reportable 08/06/17 05:29 Schistocytes Not Reportable 08/06/17 05:29 Malaria parasites Not Reportable 08/06/17 05:29 Zhou Bodies Not Reportable 08/06/17 05:29 Hem Pathologist Commnt No 08/06/17 05:29 PT 14.0 Sec. (12.2-14.9) 08/03/17 14:57 INR 1.03 (0.87-1.13) 08/03/17 14:57 APTT 28.2 Sec. (24.2-36.6) 08/03/17 14:57 Sodium 139 mmol/L (137-145) 08/08/17 05:15 Potassium 3.4 mmol/L (3.6-5.0) L 08/08/17 05:15 Chloride 101.6 mmol/L (98-107) 08/08/17 05:15 Carbon Dioxide 19 mmol/L (22-30) L 08/08/17 05:15 Anion Gap 22 mmol/L 08/08/17 05:15 BUN 5 mg/dL (9-20) L 08/08/17 05:15 Creatinine 0.4 mg/dL (0.8-1.5) L 08/08/17 05:15 Estimated GFR > 60 ml/min 08/08/17 05:15 BUN/Creatinine Ratio 13 % 08/08/17 05:15 Glucose 78 mg/dL (75-100) 08/08/17 05:15 Hemoglobin A1c 4.3 % (4-6) 08/03/17 21:31 Calcium 7.9 mg/dL (8.4-10.2) L 08/08/17 05:15 Magnesium 1.70 mg/dL (1.7-2.3) 08/07/17 06:07 Total Bilirubin 2.80 mg/dL (0.1-1.2) H 08/06/17 05:29 Direct Bilirubin 1.7 mg/dL (0-0.2) H 08/03/17 21:31 Indirect Bilirubin 1.6 mg/dL 08/03/17 21:31 AST 130 units/L (5-40) H 08/06/17 05:29 ALT 48 units/L (7-56) 08/06/17 05:29 Alkaline Phosphatase 154 units/L (35-129) H 08/06/17 05:29 Ammonia 138.0 umol/L (25-60) H 08/08/17 13:56 Total Creatine Kinase 1348 units/L (55-170) H 08/08/17 05:15 CK-MB (CK-2) 2.2 ng/mL (0.0-4.0) 08/04/17 20:30 CK-MB (CK-2) Rel Index 0.5 (0-4) 08/04/17 20:30 Troponin T < 0.010 ng/mL (0.00-0.029) 08/04/17 20:30 Total Protein 6.3 g/dL (6.3-8.2) 08/06/17 05:29 Albumin 2.9 g/dL (3.9-5) L 08/06/17 05:29 Albumin/Globulin Ratio 0.9 % 08/06/17 05:29 Vitamin B12 1117 pg/mL (211-911) H 08/06/17 09:13 Folate 13.19 ng/mL (7.3-26.0) 08/06/17 09:13 Urine Color Ellyn (Yellow) 08/03/17 12:28 Urine Turbidity Clear (Clear) 08/03/17 12:28 Urine pH 5.0 (5.0-7.0) 08/03/17 12:28 Ur Specific [place] 1.034 (1.003-1.030) H 08/03/17 12:28 Urine Protein 100 mg/dl mg/dL (Negative) 08/03/17 12:28 Urine Glucose (UA) 50 mg/dL (Negative) 08/03/17 12:28 Urine Ketones Tr mg/dL (Negative) 08/03/17 12:28 Urine Blood Lg (Negative) 08/03/17 12:28 Urine Nitrite Neg (Negative) 08/03/17 12:28 Urine Bilirubin Sm (Negative) 08/03/17 12:28 Urine Ictotest Positive (Negative) 08/03/17 12:28 Urine Urobilinogen 4.0 mg/dL (<2.0) 08/03/17 12:28 Ur Leukocyte Esterase Neg (Negative) 08/03/17 12:28 Urine WBC (Auto) 19.0 /HPF (0.0-6.0) H 08/03/17 12:28 Urine RBC (Auto) > 182.0 /HPF (0.0-6.0) 08/03/17 12:28 U Epithel Cells (Auto) < 1.0 /HPF (0-13.0) 08/03/17 12:28 Urine Bacteria (Auto) 1+ /HPF (Negative) 08/03/17 12:28 Urine Mucus 3+ /HPF 08/03/17 12:28 Urine Opiates Screen Presumptive negative 08/03/17 12:28 Urine Methadone Screen Presumptive negative 08/03/17 12:28 Ur Barbiturates Screen Presumptive negative 08/03/17 12:28 Ur Phencyclidine Scrn Presumptive negative 08/03/17 12:28 Ur Amphetamines Screen Presumptive negative 08/03/17 12:28 U Benzodiazepines Scrn Presumptive negative 08/03/17 12:28 Urine Cocaine Screen Presumptive negative 08/03/17 12:28 U Marijuana (THC) Screen Presumptive negative 08/03/17 12:28 Drugs of Abuse Note Disclamer 08/03/17 12:28 Plasma/Serum Alcohol 0.09 gm% (0-0.07) H 08/03/17 14:57 Hepatitis A IgM Ab Non-reactive (NonReactive) 08/04/17 06:58 Hep Bs Antigen Non-reactive (Negative) 08/04/17 06:58 Hep B Core IgM Ab Non-reactive (NonReactive) 08/04/17 06:58 Hepatitis C Antibody Non-reactive (NonReactive) 08/04/17 06:58
[2017-08-09] MEDS: TOBRADEX OU SCH ×6 (02:12→21:59)
[2017-08-09] MEDS: CEPHULAC PO SCH ×4 (05:33→23:11)
[2017-08-09] MEDS: LOVENOX SUB-Q SCH (11:09)
[2017-08-09] MEDS: PEPCID IV SCH ×2 (11:10→21:58)
[2017-08-09] MEDS ORDERED: ATIVAN IV PRN (11:57)
--- NOTE | 2017-08-09 13:13 | Progress Note ---
Subjective - Reason for Consult Consult date: 08/09/17 ( ) Reason for consult: Psychiatry Follow-up - Chief Complaint Chief complaint: "Hello" The patient is a 52-year-old male presenting with a chief complaint of syncope. Today patient is calm and cooperative during the assessment. 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 The patient stated drinking alcohol for many years and plan to stop. He stated that he is having marital problems, which exacerbated his desire to want to drink more. He denies being depressed or having any other mood do. He denies ever seeing a psychiatrist in the past. He stated that his main focus is to get better and work on his marriage. He denies SI/HI's. The patient has a desire to stop drinking. Mental Status Exam - Vital signs Last Vital Signs Temp 99.1 F 08/09/17 12:04 Pulse 86 08/09/17 12:04 Resp 20 08/09/17 12:04 BP 98/57 08/09/17 12:04 Pulse Ox 92 08/09/17 12:04 - Exam Narrative exam: MSE: Appearance: calm, cooperative Behavior: regular eye contact Speech: regular rate and tone Mood: "okay" Affect: congruent to mood Thought Process: circumstantial Thought Content: denies SI/HI's and AVH's Motor Activity: sitting up in bed Cognition: A/O x2 Insight: variable Judgment: variable Assessment and Plan Impression: Alcohol Use DO. Delirium is resolving. Today patient is calm and cooperative during the assessment. Medical: Syncope, elevated liver enzymes, platelets 69 trending up, CK 1348, Ammonia 138 Recommendation: Assess the need for the CIWA Protocol, this is day 6. Patient given outpatient rehab services for [facility]. Will assess patient daily. Recommend delirium precaution below: 1. Frequently reorient patient and involve him/her in their care (simple explanations of procedures, tests, medications). 2. Lights on and shades open during daytime hours. 3. Try to avoid unnecessary interruptions to sleep during nighttime hours. 4. Obtain glasses, hearing aids from home if patient uses these at baseline. 5. Avoid medications that may exacerbate delirium (especially narcotics, benzodiazepines, barbiturates, ambien, lunesta, and medications with excessive anticholinergic properties). If possible, use alternative pain medication for patient. 6. D/C restraints when not indicated, patient's CK is trending up. 7. Recommend Haldol 2 mg IM Q6hrs PRN for acute agitation. 8. Recommend 1:1 sitter for safety.
[2017-08-09] MEDS ORDERED: K-DUR PO ONE (14:02)
[2017-08-09] MEDS ORDERED: HALDOL IM PRN (20:33)
--- NOTE | 2017-08-09 20:36 | Progress Note ---
Assessment and Plan Assessment and plan: 52 years old his panic male with heavy alcohol abuse brought to the hospital after a syncopal episode Syncope Negative workup, related with alcohol abuse Alcohol withdrawal syndrome Status post banana bag On CIWA protocol Supportive care, psychiatry following Alcoholic hepatitis AST>ALT Hepatitis profile negative Monitor Hepatic encephalopathy Started on lactulose and ammonia level normalized Now, going up again and he refused to take the lactulose Thrombocytopenia Due to alcohol abuse Slowly improving Monitor Anemia Macrocytic, likely due to alcohol abuse also B12 and folate checked and within normal limits Hypokalemia Potassium still low despite replacement; continue IV K Also repleting magnesium Rechecking Rhabdomyolysis On IV fluids, CPK trending down now Closed head injury CT head with no acute abnormality Small laceration Malnutrition Start feeding when able to take by mouth DVT prophylaxis History Interval history: Mental status improved, able to answer questions Hospitalist Physical - Constitutional Vitals: Temp Pulse Resp BP Pulse Ox 98.1 F 86 22 104/62 96 08/09/17 15:11 08/09/17 15:11 08/09/17 15:11 08/09/17 15:11 08/09/17 15:11 General appearance: Present: no acute distress, well-nourished - EENT Eyes: Present: PERRL, EOM intact, scleral icterus. Absent: conjunctival injection - Neck Neck: Present: supple, normal ROM. Absent: masses or JVD - Respiratory Respiratory effort: normal Respiratory: bilateral: CTA, negative: rhonchi, wheezing - Cardiovascular Rhythm: regular Heart Sounds: Present: S1 & S2. Absent: systolic murmur - Extremities Extremities: no ischemia - Abdominal General gastrointestinal: soft, non-tender, non-distended, normal bowel sounds - Psychiatric Psychiatric: cooperative - Neurologic Neurologic: CNII-XII intact, no focal deficits Results - Labs CBC & Chem 7: 08/08/17 05:15 08/08/17 05:15 Labs: Laboratory Last Values WBC 4.3 K/mm3 (4.5-11.0) L 08/08/17 05:15 RBC 2.77 M/mm3 (3.65-5.03) L 08/08/17 05:15 Hgb 10.4 gm/dl (11.8-15.2) L 08/08/17 05:15 Hct 30.3 % (35.5-45.6) L 08/08/17 05:15 MCV 110 fl (84-94) H 08/08/17 05:15 MCH 38 pg (28-32) H 08/08/17 05:15 MCHC 34 % (32-34) 08/08/17 05:15 RDW 13.2 % (13.2-15.2) 08/08/17 05:15 Plt Count 69 K/mm3 (140-440) L 08/08/17 05:15 Lymph % (Auto) 22.0 % (13.4-35.0) 08/08/17 05:15 Long % (Auto) 15.3 % (0.0-7.3) H 08/08/17 05:15 Eos % (Auto) 3.8 % (0.0-4.3) 08/08/17 05:15 Baso % (Auto) 2.5 % (0.0-1.8) H 08/08/17 05:15 Lymph # 0.9 K/mm3 (1.2-5.4) L 08/08/17 05:15 Long # 0.6 K/mm3 (0.0-0.8) 08/08/17 05:15 Eos # 0.2 K/mm3 (0.0-0.4) 08/08/17 05:15 Baso # 0.1 K/mm3 (0.0-0.1) 08/08/17 05:15 Add Manual Diff Complete 08/06/17 05:29 Total Counted 100 08/06/17 05:29 Seg Neutrophils % 56.4 % (40.0-70.0) 08/08/17 05:15 Seg Neuts % (Manual) 72.0 % (40.0-70.0) H 08/06/17 05:29 Band Neutrophils % 2.0 % 08/06/17 05:29 Lymphocytes % (Manual) 15.0 % (13.4-35.0) 08/06/17 05:29 Reactive Lymphs % (Man) 0 % 08/06/17 05:29 Monocytes % (Manual) 5.0 % (0.0-7.3) 08/06/17 05:29 Eosinophils % (Manual) 6.0 % (0.0-4.3) H 08/06/17 05:29 Basophils % (Manual) 0 % (0.0-1.8) 08/06/17 05:29 Metamyelocytes % 0 % 08/06/17 05:29 Myelocytes % 0 % 08/06/17 05:29 Promyelocytes % 0 % 08/06/17 05:29 Blast Cells % 0 % 08/06/17 05:29 Nucleated RBC % Not Reportable 08/06/17 05:29 Seg Neutrophils # 2.4 K/mm3 (1.8-7.7) 08/08/17 05:15 Seg Neutrophils # Man 3.7 K/mm3 (1.8-7.7) 08/06/17 05:29 Band Neutrophils # 0.1 K/mm3 08/06/17 05:29 Lymphocytes # (Manual) 0.8 K/mm3 (1.2-5.4) L 08/06/17 05:29 Abs React Lymphs (Man) 0.0 K/mm3 08/06/17 05:29 Monocytes # (Manual) 0.3 K/mm3 (0.0-0.8) 08/06/17 05:29 Eosinophils # (Manual) 0.3 K/mm3 (0.0-0.4) 08/06/17 05:29 Basophils # (Manual) 0.0 K/mm3 (0.0-0.1) 08/06/17 05:29 Metamyelocytes # 0.0 K/mm3 08/06/17 05:29 Myelocytes # 0.0 K/mm3 08/06/17 05:29 Promyelocytes # 0.0 K/mm3 08/06/17 05:29 Blast Cells # 0.0 K/mm3 08/06/17 05:29 WBC Morphology Not Reportable 08/06/17 05:29 Hypersegmented Neuts Not Reportable 08/06/17 05:29 Hyposegmented Neuts Not Reportable 08/06/17 05:29 Hypogranular Neuts Not Reportable 08/06/17 05:29 Smudge Cells Not Reportable 08/06/17 05:29 Toxic Granulation Not Reportable 08/06/17 05:29 Toxic Vacuolation Not Reportable 08/06/17 05:29 Dohle Bodies Not Reportable 08/06/17 05:29 Pelger-Huet Anomaly Not Reportable 08/06/17 05:29 Kalpana Rods Not Reportable 08/06/17 05:29 Platelet Estimate Appears decreased 08/06/17 05:29 Clumped Platelets Not Reportable 08/06/17 05:29 Plt Clumps, EDTA Not Reportable 08/06/17 05:29 Large Platelets Not Reportable 08/06/17 05:29 Giant Platelets Not Reportable 08/06/17 05:29 Platelet Satelliting Not Reportable 08/06/17 05:29 Plt Morphology Comment Not Reportable 08/06/17 05:29 RBC Morphology Not Reportable 08/06/17 05:29 Dimorphic RBCs Not Reportable 08/06/17 05:29 Polychromasia Not Reportable 08/06/17 05:29 Hypochromasia Not Reportable 08/06/17 05:29 Poikilocytosis Not Reportable 08/06/17 05:29 Anisocytosis Not Reportable 08/06/17 05:29 Microcytosis Not Reportable 08/06/17 05:29 Macrocytosis Few 08/06/17 05:29 Spherocytes Not Reportable 08/06/17 05:29 Pappenheimer Bodies Not Reportable 08/06/17 05:29 Sickle Cells Not Reportable 08/06/17 05:29 Target Cells Not Reportable 08/06/17 05:29 Tear Drop Cells Not Reportable 08/06/17 05:29 Ovalocytes Not Reportable 08/06/17 05:29 Helmet Cells Not Reportable 08/06/17 05:29 [place]errier-[place] Bodies Not Reportable 08/06/17 05:29 [place] Rings Not Reportable 08/06/17 05:29 [place] Cells Not Reportable 08/06/17 05:29 Bite Cells Not Reportable 08/06/17 05:29 Crenated Cell Not Reportable 08/06/17 05:29 Elliptocytes Not Reportable 08/06/17 05:29 Acanthocytes (Spur) Not Reportable 08/06/17 05:29 Rouleaux Not Reportable 08/06/17 05:29 Hemoglobin C Crystals Not Reportable 08/06/17 05:29 Schistocytes Not Reportable 08/06/17 05:29 Malaria parasites Not Reportable 08/06/17 05:29 Zhou Bodies Not Reportable 08/06/17 05:29 Hem Pathologist Commnt No 08/06/17 05:29 PT 14.0 Sec. (12.2-14.9) 08/03/17 14:57 INR 1.03 (0.87-1.13) 08/03/17 14:57 APTT 28.2 Sec. (24.2-36.6) 08/03/17 14:57 Sodium 139 mmol/L (137-145) 08/08/17 05:15 Potassium 3.4 mmol/L (3.6-5.0) L 08/08/17 05:15 Chloride 101.6 mmol/L (98-107) 08/08/17 05:15 Carbon Dioxide 19 mmol/L (22-30) L 08/08/17 05:15 Anion Gap 22 mmol/L 08/08/17 05:15 BUN 5 mg/dL (9-20) L 08/08/17 05:15 Creatinine 0.4 mg/dL (0.8-1.5) L 08/08/17 05:15 Estimated GFR > 60 ml/min 08/08/17 05:15 BUN/Creatinine Ratio 13 % 08/08/17 05:15 Glucose 78 mg/dL (75-100) 08/08/17 05:15 Hemoglobin A1c 4.3 % (4-6) 08/03/17 21:31 Calcium 7.9 mg/dL (8.4-10.2) L 08/08/17 05:15 Magnesium 1.70 mg/dL (1.7-2.3) 08/07/17 06:07 Total Bilirubin 2.80 mg/dL (0.1-1.2) H 08/06/17 05:29 Direct Bilirubin 1.7 mg/dL (0-0.2) H 08/03/17 21:31 Indirect Bilirubin 1.6 mg/dL 08/03/17 21:31 AST 130 units/L (5-40) H 08/06/17 05:29 ALT 48 units/L (7-56) 08/06/17 05:29 Alkaline Phosphatase 154 units/L (35-129) H 08/06/17 05:29 Ammonia 138.0 umol/L (25-60) H 08/08/17 13:56 Total Creatine Kinase 1348 units/L (55-170) H 08/08/17 05:15 CK-MB (CK-2) 2.2 ng/mL (0.0-4.0) 08/04/17 20:30 CK-MB (CK-2) Rel Index 0.5 (0-4) 08/04/17 20:30 Troponin T < 0.010 ng/mL (0.00-0.029) 08/04/17 20:30 Total Protein 6.3 g/dL (6.3-8.2) 08/06/17 05:29 Albumin 2.9 g/dL (3.9-5) L 08/06/17 05:29 Albumin/Globulin Ratio 0.9 % 08/06/17 05:29 Vitamin B12 1117 pg/mL (211-911) H 08/06/17 09:13 Folate 13.19 ng/mL (7.3-26.0) 08/06/17 09:13 Urine Color Ellyn (Yellow) 08/03/17 12:28 Urine Turbidity Clear (Clear) 08/03/17 12:28 Urine pH 5.0 (5.0-7.0) 08/03/17 12:28 Ur Specific [place] 1.034 (1.003-1.030) H 08/03/17 12:28 Urine Protein 100 mg/dl mg/dL (Negative) 08/03/17 12:28 Urine Glucose (UA) 50 mg/dL (Negative) 08/03/17 12:28 Urine Ketones Tr mg/dL (Negative) 08/03/17 12:28 Urine Blood Lg (Negative) 08/03/17 12:28 Urine Nitrite Neg (Negative) 08/03/17 12:28 Urine Bilirubin Sm (Negative) 08/03/17 12:28 Urine Ictotest Positive (Negative) 08/03/17 12:28 Urine Urobilinogen 4.0 mg/dL (<2.0) 08/03/17 12:28 Ur Leukocyte Esterase Neg (Negative) 08/03/17 12:28 Urine WBC (Auto) 19.0 /HPF (0.0-6.0) H 08/03/17 12:28 Urine RBC (Auto) > 182.0 /HPF (0.0-6.0) 08/03/17 12:28 U Epithel Cells (Auto) < 1.0 /HPF (0-13.0) 08/03/17 12:28 Urine Bacteria (Auto) 1+ /HPF (Negative) 08/03/17 12:28 Urine Mucus 3+ /HPF 08/03/17 12:28 Urine Opiates Screen Presumptive negative 08/03/17 12:28 Urine Methadone Screen Presumptive negative 08/03/17 12:28 Ur Barbiturates Screen Presumptive negative 08/03/17 12:28 Ur Phencyclidine Scrn Presumptive negative 08/03/17 12:28 Ur Amphetamines Screen Presumptive negative 08/03/17 12:28 U Benzodiazepines Scrn Presumptive negative 08/03/17 12:28 Urine Cocaine Screen Presumptive negative 08/03/17 12:28 U Marijuana (THC) Screen Presumptive negative 08/03/17 12:28 Drugs of Abuse Note Disclamer 08/03/17 12:28 Plasma/Serum Alcohol 0.09 gm% (0-0.07) H 08/03/17 14:57 Hepatitis A IgM Ab Non-reactive (NonReactive) 08/04/17 06:58 Hep Bs Antigen Non-reactive (Negative) 08/04/17 06:58 Hep B Core IgM Ab Non-reactive (NonReactive) 08/04/17 06:58 Hepatitis C Antibody Non-reactive (NonReactive) 08/04/17 06:58
[2017-08-10] MEDS: TOBRADEX OU SCH ×4 (03:23→14:49)
[2017-08-10 05:24] LABS: Hemoglobin 11.5 gm/dl (11.8-15.2); Mean Corpuscular HGB Conc 35 % (32-34); Mean Corpuscular Hemoglobin 38 pg (28-32); Mean Corpuscular Volume 109 fl (84-94); Platelet Count 105 K/mm3 (140-440); Red Blood Count 3.03 M/mm3 (3.65-5.03); Red Cell Distribution Width 13.1 % (13.2-15.2); White Blood Count 3.8 K/mm3 (4.5-11.0)
[2017-08-10 05:50] LABS: Anion Gap 14 mmol/L; BUN/Creatinine Ratio 23; Blood Urea Nitrogen 9 mg/dL (9-20); Calcium 7.8 mg/dL (8.4-10.2); Carbon Dioxide 25 mmol/L (22-30); Chloride 104.8 mmol/L (98-107); Creatine Kinase 267 units/L (55-170); Glucose 96 mg/dL (75-100); Potassium 3.2 mmol/L (3.6-5.0); Sodium 141 mmol/L (137-145)
[2017-08-10] MEDS: CEPHULAC PO SCH ×2 (06:18→11:44)
[2017-08-10] MEDS ORDERED: K-DUR PO ONE ×2 (08:01→11:00)
--- NOTE | 2017-08-10 08:18 | Progress Note ---
Assessment and Plan Assessment and plan: Impression: Alcohol Use DO. Delirium is resolving. Today patient is calm and cooperative during the assessment. Medical: Syncope, elevated liver enzymes, platelets 69 trending up, CK 1348, Ammonia 138 Recommendation: Assess the need for the CIWA Protocol, this is day 6. Patient given outpatient rehab services for [facility]. Will assess patient daily. Recommend delirium precaution below: 1. Frequently reorient patient and involve him/her in their care (simple explanations of procedures, tests, medications). 2. Lights on and shades open during daytime hours. 3. Try to avoid unnecessary interruptions to sleep during nighttime hours. 4. Obtain glasses, hearing aids from home if patient uses these at baseline. 5. Avoid medications that may exacerbate delirium (especially narcotics, benzodiazepines, barbiturates, ambien, lunesta, and medications with excessive anticholinergic properties). If possible, use alternative pain medication for patient. 6. D/C restraints when not indicated, patient's CK is trending up. 7. Recommend Haldol 2 mg IM Q6hrs PRN for acute agitation. 8. Recommend 1:1 sitter for safety. Hospitalist Physical - Constitutional Vitals: Temp Pulse Resp BP Pulse Ox 98.9 F 79 18 106/61 95 08/09/17 22:27 08/09/17 22:27 08/09/17 22:27 08/09/17 22:27 08/09/17 22:27 General appearance: Present: no acute distress, well-nourished Results - Labs CBC & Chem 7: 08/10/17 05:03 08/10/17 05:03 Labs: Laboratory Last Values WBC 3.8 K/mm3 (4.5-11.0) L 08/10/17 05:03 RBC 3.03 M/mm3 (3.65-5.03) L 08/10/17 05:03 Hgb 11.5 gm/dl (11.8-15.2) L 08/10/17 05:03 Hct 33.0 % (35.5-45.6) L 08/10/17 05:03 MCV 109 fl (84-94) H 08/10/17 05:03 MCH 38 pg (28-32) H 08/10/17 05:03 MCHC 35 % (32-34) H 08/10/17 05:03 RDW 13.1 % (13.2-15.2) L 08/10/17 05:03 Plt Count 105 K/mm3 (140-440) L 08/10/17 05:03 Lymph % (Auto) 22.0 % (13.4-35.0) 08/08/17 05:15 [place] % (Auto) Suspect Artist 08/10/17 05:03 Eos % (Auto) 3.8 % (0.0-4.3) 08/08/17 05:15 Baso % (Auto) Suspect Artist 08/10/17 05:03 Lymph # 0.9 K/mm3 (1.2-5.4) L 08/08/17 05:15 [place] # 0.6 K/mm3 (0.0-0.8) 08/08/17 05:15 Eos # 0.2 K/mm3 (0.0-0.4) 08/08/17 05:15 Baso # 0.1 K/mm3 (0.0-0.1) 08/08/17 05:15 Add Manual Diff Complete 08/06/17 05:29 Total Counted 100 08/06/17 05:29 Seg Neutrophils % 56.4 % (40.0-70.0) 08/08/17 05:15 Seg Neuts % (Manual) 72.0 % (40.0-70.0) H 08/06/17 05:29 Band Neutrophils % 2.0 % 08/06/17 05:29 Lymphocytes % (Manual) 15.0 % (13.4-35.0) 08/06/17 05:29 Reactive Lymphs % (Man) 0 % 08/06/17 05:29 Monocytes % (Manual) 5.0 % (0.0-7.3) 08/06/17 05:29 Eosinophils % (Manual) 6.0 % (0.0-4.3) H 08/06/17 05:29 Basophils % (Manual) 0 % (0.0-1.8) 08/06/17 05:29 Metamyelocytes % 0 % 08/06/17 05:29 Myelocytes % 0 % 08/06/17 05:29 Promyelocytes % 0 % 08/06/17 05:29 Blast Cells % 0 % 08/06/17 05:29 Nucleated RBC % Not Reportable 08/06/17 05:29 Seg Neutrophils # 2.4 K/mm3 (1.8-7.7) 08/08/17 05:15 Seg Neutrophils # Man 3.7 K/mm3 (1.8-7.7) 08/06/17 05:29 Band Neutrophils # 0.1 K/mm3 08/06/17 05:29 Lymphocytes # (Manual) 0.8 K/mm3 (1.2-5.4) L 08/06/17 05:29 Abs React Lymphs (Man) 0.0 K/mm3 08/06/17 05:29 Monocytes # (Manual) 0.3 K/mm3 (0.0-0.8) 08/06/17 05:29 Eosinophils # (Manual) 0.3 K/mm3 (0.0-0.4) 08/06/17 05:29 Basophils # (Manual) 0.0 K/mm3 (0.0-0.1) 08/06/17 05:29 Metamyelocytes # 0.0 K/mm3 08/06/17 05:29 Myelocytes # 0.0 K/mm3 08/06/17 05:29 Promyelocytes # 0.0 K/mm3 08/06/17 05:29 Blast Cells # 0.0 K/mm3 08/06/17 05:29 WBC Morphology Not Reportable 08/06/17 05:29 Hypersegmented Neuts Not Reportable 08/06/17 05:29 Hyposegmented Neuts Not Reportable 08/06/17 05:29 Hypogranular Neuts Not Reportable 08/06/17 05:29 Smudge Cells Not Reportable 08/06/17 05:29 Toxic Granulation Not Reportable 08/06/17 05:29 Toxic Vacuolation Not Reportable 08/06/17 05:29 Dohle Bodies Not Reportable 08/06/17 05:29 Pelger-Huet Anomaly Not Reportable 08/06/17 05:29 Kalpana Rods Not Reportable 08/06/17 05:29 Platelet Estimate Appears decreased 08/06/17 05:29 Clumped Platelets Not Reportable 08/06/17 05:29 Plt Clumps, EDTA Not Reportable 08/06/17 05:29 Large Platelets Not Reportable 08/06/17 05:29 Giant Platelets Not Reportable 08/06/17 05:29 Platelet Satelliting Not Reportable 08/06/17 05:29 Plt Morphology Comment Not Reportable 08/06/17 05:29 RBC Morphology Not Reportable 08/06/17 05:29 Dimorphic RBCs Not Reportable 08/06/17 05:29 Polychromasia Not Reportable 08/06/17 05:29 Hypochromasia Not Reportable 08/06/17 05:29 Poikilocytosis Not Reportable 08/06/17 05:29 Anisocytosis Not Reportable 08/06/17 05:29 Microcytosis Not Reportable 08/06/17 05:29 Macrocytosis Few 08/06/17 05:29 Spherocytes Not Reportable 08/06/17 05:29 Pappenheimer Bodies Not Reportable 08/06/17 05:29 Sickle Cells Not Reportable 08/06/17 05:29 Target Cells Not Reportable 08/06/17 05:29 Tear Drop Cells Not Reportable 08/06/17 05:29 Ovalocytes Not Reportable 08/06/17 05:29 Helmet Cells Not Reportable 08/06/17 05:29 Guerrier-[place] Bodies Not Reportable 08/06/17 05:29 [place] Rings Not Reportable 08/06/17 05:29 Cyrus Cells Not Reportable 08/06/17 05:29 Bite Cells Not Reportable 08/06/17 05:29 Crenated Cell Not Reportable 08/06/17 05:29 Elliptocytes Not Reportable 08/06/17 05:29 Acanthocytes (Spur) Not Reportable 08/06/17 05:29 Rouleaux Not Reportable 08/06/17 05:29 Hemoglobin C Crystals Not Reportable 08/06/17 05:29 Schistocytes Not Reportable 08/06/17 05:29 Malaria parasites Not Reportable 08/06/17 05:29 Zhou Bodies Not Reportable 08/06/17 05:29 Hem Pathologist Commnt No 08/06/17 05:29 PT 14.0 Sec. (12.2-14.9) 08/03/17 14:57 INR 1.03 (0.87-1.13) 08/03/17 14:57 APTT 28.2 Sec. (24.2-36.6) 08/03/17 14:57 Sodium 141 mmol/L (137-145) 08/10/17 05:03 Potassium 3.2 mmol/L (3.6-5.0) L 08/10/17 05:03 Chloride 104.8 mmol/L (98-107) 08/10/17 05:03 Carbon Dioxide 25 mmol/L (22-30) 08/10/17 05:03 Anion Gap 14 mmol/L 08/10/17 05:03 BUN 9 mg/dL (9-20) 08/10/17 05:03 Creatinine 0.4 mg/dL (0.8-1.5) L 08/10/17 05:03 Estimated GFR > 60 ml/min 08/10/17 05:03 BUN/Creatinine Ratio 23 % 08/10/17 05:03 Glucose 96 mg/dL (75-100) 08/10/17 05:03 Hemoglobin A1c 4.3 % (4-6) 08/03/17 21:31 Calcium 7.8 mg/dL (8.4-10.2) L 08/10/17 05:03 Magnesium 1.70 mg/dL (1.7-2.3) 08/10/17 05:03 Total Bilirubin 2.80 mg/dL (0.1-1.2) H 08/06/17 05:29 Direct Bilirubin 1.7 mg/dL (0-0.2) H 08/03/17 21:31 Indirect Bilirubin 1.6 mg/dL 08/03/17 21:31 AST 130 units/L (5-40) H 08/06/17 05:29 ALT 48 units/L (7-56) 08/06/17 05:29 Alkaline Phosphatase 154 units/L (35-129) H 08/06/17 05:29 Ammonia 56.0 umol/L (25-60) 08/10/17 05:03 Total Creatine Kinase 267 units/L (55-170) H 08/10/17 05:03 CK-MB (CK-2) 2.2 ng/mL (0.0-4.0) 08/04/17 20:30 CK-MB (CK-2) Rel Index 0.5 (0-4) 08/04/17 20:30 Troponin T < 0.010 ng/mL (0.00-0.029) 08/04/17 20:30 Total Protein 6.3 g/dL (6.3-8.2) 08/06/17 05:29 Albumin 2.9 g/dL (3.9-5) L 08/06/17 05:29 Albumin/Globulin Ratio 0.9 % 08/06/17 05:29 Vitamin B12 1117 pg/mL (211-911) H 08/06/17 09:13 Folate 13.19 ng/mL (7.3-26.0) 08/06/17 09:13 Urine Color Ellyn (Yellow) 08/03/17 12:28 Urine Turbidity Clear (Clear) 08/03/17 12:28 Urine pH 5.0 (5.0-7.0) 08/03/17 12:28 Ur Specific [place] 1.034 (1.003-1.030) H 08/03/17 12:28 Urine Protein 100 mg/dl mg/dL (Negative) 08/03/17 12:28 Urine Glucose (UA) 50 mg/dL (Negative) 08/03/17 12:28 Urine Ketones Tr mg/dL (Negative) 08/03/17 12:28 Urine Blood Lg (Negative) 08/03/17 12:28 Urine Nitrite Neg (Negative) 08/03/17 12:28 Urine Bilirubin Sm (Negative) 08/03/17 12:28 Urine Ictotest Positive (Negative) 08/03/17 12:28 Urine Urobilinogen 4.0 mg/dL (<2.0) 08/03/17 12:28 Ur Leukocyte Esterase Neg (Negative) 08/03/17 12:28 Urine WBC (Auto) 19.0 /HPF (0.0-6.0) H 08/03/17 12:28 Urine RBC (Auto) > 182.0 /HPF (0.0-6.0) 08/03/17 12:28 U Epithel Cells (Auto) < 1.0 /HPF (0-13.0) 08/03/17 12:28 Urine Bacteria (Auto) 1+ /HPF (Negative) 08/03/17 12:28 Urine Mucus 3+ /HPF 08/03/17 12:28 Urine Opiates Screen Presumptive negative 08/03/17 12:28 Urine Methadone Screen Presumptive negative 08/03/17 12:28 Ur Barbiturates Screen Presumptive negative 08/03/17 12:28 Ur Phencyclidine Scrn Presumptive negative 08/03/17 12:28 Ur Amphetamines Screen Presumptive negative 08/03/17 12:28 U Benzodiazepines Scrn Presumptive negative 08/03/17 12:28 Urine Cocaine Screen Presumptive negative 08/03/17 12:28 U Marijuana (THC) Screen Presumptive negative 08/03/17 12:28 Drugs of Abuse Note Disclamer 08/03/17 12:28 Plasma/Serum Alcohol 0.09 gm% (0-0.07) H 08/03/17 14:57 Hepatitis A IgM Ab Non-reactive (NonReactive) 08/04/17 06:58 Hep Bs Antigen Non-reactive (Negative) 08/04/17 06:58 Hep B Core IgM Ab Non-reactive (NonReactive) 08/04/17 06:58 Hepatitis C Antibody Non-reactive (NonReactive) 08/04/17 06:58
[2017-08-10 08:45] LABS: Basophils % (Manual) 0 % (0.0-1.8); Blastocytes % (Manual) 0 %
[2017-08-10 08:46] LABS: Diff Status Complete; Platelet Estimate Consistent w Auto; RBC Morphology Normal
[2017-08-10 09:30] VITALS: BP 97/56
[2017-08-10] MEDS ORDERED: PEPCID PO SCH (11:00)
[2017-08-10] MEDS: LOVENOX SUB-Q SCH (11:41)
[2017-08-10] MEDS: PEPCID IV SCH (11:43)
--- NOTE | 2017-08-10 12:43 | Discharge Summary ---
Providers - Providers Date of Admission: 08/03/17 20:50 Date of discharge: 08/10/17 Attending physician: BHASKAR ZHANG 08/04/17 06:37 Consult to Mental Health [CONS] Routine Reason For Exam: Etoh abuse Place consult to:: Guevara Notified:: Phone number called:: [phone] Was contact made?: Yes If yes, spoke with:: prerna Time called:: 08:48 08/09/17 11:09 Physical Therapy Evaluation and Treat [CONS] Routine Comment: Reason For Exam: Generalized Weakness Primary care physician: INSURANCE PROFESSIONAL Hospitalization Reason for admission: syncopal episode Condition: Fair Pertinent studies: CT head CT cervical spine CT face Carotid Doppler Hospital course: 52-year-old male patient was admitted to the emergency room with history of syncopal episode, patient has history of excessive consumption of alcohol prior to admission to the hospital Patient was initially evaluated to the hospital symptomatically managed The workup was negative, patient was placed on CIWA protocol, also had mild elevation of transaminases secondary to alcoholic liver disease Patient was strongly counseled to quit alcohol intake verbalized understanding Patient had a small laceration of the lip and CT head was within normal limits Symptoms significantly improved on the day of discharge patient Signs stable [id number] evaluation physical examination done prior to discharge is unremarkable Discharge diagnosis; --Syncope,Negative workup, --Alcohol withdrawal syndrome --Alcoholic liver disease --Hepatic encephalopathy --Thrombocytopenia --Anemia --Hypokalemia --Rhabdomyolysis --Closed head injury --Moderate Malnutrition Disposition: DE-01 TO HOME OR SELFCARE Time spent for discharge: 32 min Core Measure Documentation - Palliative Care Palliative Care/ Comfort Measures: Not Applicable - Core Measures Any of the following diagnoses?: none Exam - Constitutional Vitals: Temp Pulse Resp BP Pulse Ox 98.2 F 74 18 97/56 96 08/10/17 08:44 08/10/17 08:44 08/10/17 08:44 08/10/17 08:44 08/10/17 08:44 General appearance: Present: no acute distress, well-nourished - EENT Eyes: Present: PERRL, EOM intact - Neck Neck: Present: supple, normal ROM - Respiratory Respiratory effort: normal Respiratory: negative: rales, rhonchi, wheezing - Cardiovascular Rhythm: regular Heart Sounds: Present: S1 & S2 - Extremities Extremities: no ischemia, No edema Peripheral Pulses: within normal limits - Abdominal General gastrointestinal: Present: soft, non-tender, non-distended, normal bowel sounds - Integumentary Integumentary: Present: clear, warm - Musculoskeletal Musculoskeletal: strength equal bilaterally - Psychiatric Psychiatric: appropriate mood/affect, cooperative - Neurologic Neurologic: CNII-XII intact, moves all extremities Plan Activity: no restrictions, advance as tolerated, fall precautions, other (do not drive or operate heavy machinery , under the influence of alcohol) Diet: regular Follow up with: PRIMARY CARE, [Primary Care Provider] - 3-5 Days Prescriptions: Famotidine [Pepcid] 20 mg PO BID #30 tablet Folic Acid [Folvite] 1 mg PO QDAY #30 tablet Thiamine [Vitamin B-1] 100 mg PO QDAY #30 tablet
== END 2017-08-10 15:41 | disposition home or self-care (01) | DRG 897 ==
LOC: ED 11:53 → 3A 20:50
PROVIDERS: ADMIT Internal Medicine; ATTEND Internal Medicine
PROC: 0CQ0XZZ Repair Upper Lip, External Approach (ICD-10-PCS; principal; 2017-08-04)
DX: F10.239 Alcohol dependence with withdrawal, unspecified (principal); M62.82 Rhabdomyolysis; E46 Unspecified protein-calorie malnutrition; R55 Syncope and collapse; S09.90XA Unspecified injury of head, initial encounter; X58.XXXA Exposure to other specified factors, initial encounter; K70.10 Alcoholic hepatitis without ascites; K72.90 Hepatic failure, unspecified without coma; D69.6 Thrombocytopenia, unspecified; D64.9 Anemia, unspecified; E87.6 Hypokalemia; Z68.24 Body mass index [BMI] 24.0-24.9, adult; Y93.89 Activity, other specified; Y92.89 Other specified places as the place of occurrence of the external cause; Y99.8 Other external cause status
CPT/HCPCS: 36415; 70450; 70486; 72125; 80048; 80053; 80074; 80307; 80320; 81001; 82140; 82550; 82553; 82607; 82747; 83036; 83735; 84484; 85007; 85025; 85610; 85730; 87086; 93005; 93010; 93880; 96365; 96375; 99285; G0480; J0696; J1630; J1650; J2060; J2270; J2405; J3411; J3475; J3480; J7030; J7042